=== PATIENT | male | born 1940 | race Caucasian/White ===

== ENCOUNTER 2019-04-19 11:39 | Emergency (ER) | payer MEDICARE, OTHER ==
--- NOTE | 2019-04-19 11:55 | EDM.PDOC ---
ED HPI GENERAL MEDICAL PROBLEM - General Chief Complaint: Neuro Symptoms/Deficits Stated Complaint: [facility] Time Seen by Provider: 04/19/19 11:39 Source of Information: Reports: Patient History Limitations: Reports: No Limitations - History of Present Illness INITIAL COMMENTS - FREE TEXT/NARRATIVE: 79-year-old male presents the ED per [facility] in his own home. Sometime during the night he is developed neurological deficits particularly in his left upper extremity left lower extremity and he believes his speech change some as well. His vision is a bit blurry this morning but he states it often is. He states there is no obvious visual deficit per se. He did have a severe left-sided headache which is subsequently eased up a good deal. He noted problems trying to eat this morning with his left hand which she is left-hand- dominant. Seborrheic short cake for breakfast and had difficulties coordinating his left upper extremity. Also been appreciated trouble walking due to left leg weakness. Previous history of CVA. Been diabetic for greater than 20 years. Sugars are well controlled usually 110-140. No recent hypoglycemic episodes. Paramedics got his blood sugar greater than 124. Denies any recent falls or closed head injuries. Onset: Today, Unknown/Unsure Onset Date: 04/19/19 Duration: Hour(s): Location: Reports: Upper Extremity, Left, Lower Extremity, Left, Other (Some difficulty with speech.) Quality: Reports: Other (Left arm and leg weakness. Perhaps mild left facial weakness) Severity: Mild Improves with: Reports: None Worsens with: Reports: None Context: Reports: Other (seem to awaken with symptoms around 0600 hrs. this morning something happened during the night.). Denies: Activity, Exercise, Lifting, Sick Contact, Trauma Associated Symptoms: Reports: Headaches, Malaise, Shortness of Breath ( Chronically on exertion). Denies: Confusion, Chest Pain, Cough, cough w sputum , Diaphoresis, Fever/Chills (Severe left-sided headache which is unusual for him this morning. It is subsequently eased up a good deal.), Loss of Appetite, Nausea/Vomiting, Rash, Seizure, Syncope Treatments PRESIDENT: Reports: Other (see below) (None.) - Related Data Allergies Allergy/AdvReac Type Severity Reaction Status Date / Time No Known Allergies Allergy Verified 04/19/19 12:49 Home Meds: Home Meds Aspirin [Halfprin] 162 mg PO DAILY 04/20/18 [History] B2/Vits A,C,E/Lut/Zeaxanth/Min [Icaps] 1 tab PO BID 04/20/18 [History] Cartilage/Collagen/Bor/Hyalur [Joint Health Tablet] 2 tab PO DAILY 04/20/18 [ History] Cyanocobalamin (Vitamin B-12) [Vitamin B-12] 1,000 mcg PO DAILY 04/20/18 [ History] Fenofibrate Nanocrystallized [Tricor] 145 mg PO DAILY 04/20/18 [History] Furosemide [Lasix] 40 mg PO DAILY 04/20/18 [History] Insulin Aspart [NovoLOG] 0 unit SQ TIDMEALS 04/20/18 [History] Insulin Glarg,Human.Rec.Analog [Lantus] 34 unit SUBCUT BEDTIME 04/20/18 [History ] Isosorbide Mononitrate [Imdur] 30 mg PO DAILY 04/20/18 [History] Levothyroxine 75 mcg PO ACBREAKFAST 04/20/18 [History] Metoprolol Succinate 50 mg PO DAILY 04/20/18 [History] Multivitamin [Multivitamins] 1 cap PO DAILY 04/20/18 [History] Nitroglycerin [Nitrostat] 0.4 mg SL ASDIRECTED PRN 04/20/18 [History] Ramipril [Altace] 10 mg PO BID 04/20/18 [History] Simvastatin [Zocor] 20 mg PO BEDTIME 04/20/18 [History] Tamsulosin HCl [Flomax] 0.4 mg PO BEDTIME 04/20/18 [History] metFORMIN HCl [Metformin HCl] 1,000 mg PO BID 04/20/18 [History] Ferrous Sulfate [Iron] 0.5 tab PO DAILY 04/19/19 [History] Past Medical History HEENT History: Reports: None Cardiovascular History: Reports: CAD, High Cholesterol, Hypertension, LA, Other (See Below) Other Cardiovascular History: Abdominal aortic aneurysm Respiratory History: Reports: Sleep Apnea Gastrointestinal History: Reports: None Genitourinary History: Reports: BPH, Other (See Below) Other Genitourinary History: stent to right kidney Musculoskeletal History: Reports: None Neurological History: Reports: None Other Neuro History: needing carotid surgery per patient Psychiatric History: Reports: None Endocrine/Metabolic History: Reports: Diabetes, Type II, Hypothyroidism Hematologic History: Reports: Anemia, Iron Deficiency, Other (See Below) Other Hematologic History: Microhematuria Immunologic History: Reports: None Oncologic (Cancer) History: Reports: Bladder, Non-Hodgkin's Lymphoma Other Oncologic History: Bladder neoplasm, bladder mass Dermatologic History: Reports: None - Infectious Disease History Infectious Disease History: Reports: None - Past Surgical History Head Surgeries/Procedures: Reports: None HEENT Surgical History: Reports: Tonsillectomy Cardiovascular Surgical History: Reports: Pacer, Other (See Below) Other Cardiovascular Surgeries/Procedures: Angiogram Respiratory Surgical History: Reports: None GI Surgical History: Reports: Appendectomy, Colonoscopy, Other (See Below) Other GI Surgeries/Procedures: Sigmoidoscopy Other Female Surgeries/Procedures: Cystoscopy with stent Male Surgical History: Reports: TURBT-Transurethral Resection of Bladder Tumor, Other (See Below) Endocrine Surgical History: Reports: None Neurological Surgical History: Reports: None Musculoskeletal Surgical History: Reports: None Oncologic Surgical History: Reports: None Dermatological Surgical History: Reports: None Social & Family History - Caffeine Use Caffeine Use: Reports: Coffee, Tea - Living Situation & Occupation Living situation: Reports: , with Spouse (In their own home in [facility]) Occupation: Retired ED ROS GENERAL - Review of Systems Review Of Systems: See Below Constitutional: Reports: Malaise, Weakness, Fatigue. Denies: Fever, Chills HEENT: Reports: Vision Change (Chronic vision changes. No improvement since cataract extractions done within the last 6 months.) Respiratory: Reports: Shortness of Breath ( Has known macular degeneration. Unclear if he has diabetic retinopathy.), Cough. Denies: Wheezing, Pleuritic Chest Pain, Sputum, Hemoptysis (Nonproductive cough.) Cardiovascular: Reports: Blood Pressure Problem, Dyspnea on Exertion, Lightheadedness. Denies: Chest Pain, Claudication, Edema, Orthopnea Endocrine: Reports: Fatigue (Chronically) GI/Abdominal: Reports: Constipation, Other : Reports: Frequency (Occasional GERD.), Other Musculoskeletal: Reports: Back Pain (Nocturia usually 3. Has known BPH.), Joint Pain (A sepsis neck and shoulders at times.) Skin: Reports: No Symptoms Neurological: Reports: Dizziness (Occasional dizziness and vertigo symptoms), Headache, Numbness (Severe left hemicranial headache this morning which is subsequently dissipated.), Paresthesia (Has peripheral neuropathy in both lower extremities from the knees down.), Tingling, Trouble Speaking (Worse today left leg weakness. He had some trouble speaking but he comes across normally and are) , Difficulty Walking, Weakness, Change in Speech, Gait Disturbance. Denies: Confusion, Pre-Existing Deficit ( From the knees down both lower extremities.), Seizure, Tremors ( discussion.) Psychiatric: Reports: No Symptoms Hematologic/Lymphatic: Reports: No Symptoms Immunologic: Reports: No Symptoms ED EXAM, NEURO - Physical Exam Exam: See Below Exam Limited By: No Limitations General Appearance: Alert, WD/WN, No Apparent Distress, Other (Appears to be having trouble with his vision.) Eye Exam: Bilateral Eye: Normal Inspection, PERRL (No gaze palsy.) Throat/Mouth: Normal Inspection, Normal Lips, Normal Oropharynx, Other Head Exam: Atraumatic (Uvula is dry and in the midline.), Normocephalic Neck: Normal Inspection, Supple, Non-Tender, Full Range of Motion. No: Carotid Bruit, Lymphadenopathy (L), Lymphadenopathy (R) Respiratory/Chest: Respiratory Distress, Decreased Breath Sounds (Mild tachypnea.), Rales ( Decreased air into the lower 25% lung carlson bilaterally. Bilateral rales appreciated in the lower 20% of lung carlson.) Cardiovascular: Regular Rate, Rhythm, No Edema, No Gallop, No Murmur, No Rub. No: Normal Peripheral Pulses GI/Abdominal: Normal Bowel Sounds, Soft, Non-Tender, No Abnormal Bruit, No Mass Neurological: Alert, Normal Mood/Affect, CN II-XII Intact, Normal Plantar Flexion, Normal Reflexes, Oriented x 3, Abnormal Finger to Nose (Left hand.), Other. No: Normal Gait, Babinski (No sustained clonus.) DTR: 0: Achilles (R), Achilles (L), 2+: Patella (R), Patella (L) Back Exam: Other (Very mild kyphosis thoracic spine.) Extremities: Normal Inspection, Normal Range of Motion, Non-Tender Psychiatric: Normal Affect, Normal Mood Skin Exam: Warm, Dry, Intact, Normal Color, Pallor (Mildly pallid.) EKG INTERPRETATION EKG Date: 04/19/19 Time: 12:20 Rhythm: NSR Rate (Beats/Min): 74 Xenia: LAD-Left Xenia Deviation (-45) P-Wave: Present (Borderline first-degree AV block) QRS: Other (Left bundle branch block pattern Q waves leads [address] segment elevation consider acute inferior wall myocardial infarction. There is also ST segment depression in V5 V6 one in aVL compatible with reciprocal changes.) ST-T: Elevated (Elevated leads 3 and aVF) QT: Normal EKG Interpretation Comments: Abnormal ECG Course - Vital Signs Last Recorded V/S: Last Vital Signs Temp 36.4 C 04/19/19 12:00 Pulse 77 04/19/19 12:00 Resp 20 04/19/19 12:00 BP 131/62 04/19/19 12:00 Pulse Ox 86 L 04/19/19 12:00 - Orders/Labs/Meds Orders: Active Orders 24 hr Category Date Time Status EKG Documentation Completion [RC] STAT Care 04/19/19 11:50 Active Influenza Vaccine Charge [RC] .DISCHARGE Care 04/19/19 12:26 Active Chest 1V Frontal [CR] Stat Exams 04/19/19 11:50 Taken URINALYSIS W/MICROSCOPIC [UA W/MICROSCOPIC] [URIN] Stat Lab 04/19/19 11:52 Ordered Furosemide [Lasix] Med 04/19/19 13:07 Once 60 mg IVPUSH NOW ONE Heparin Sodium/D5W [Heparin 25,000 Units in D5W 500 ML] Med 04/19/19 13:00 Active 25,000 units in 500 ml IV TITRATE Sodium Chloride 0.9% [Normal Saline] 1,000 ml Med 04/19/19 12:15 Active IV ASDIRECTED Medication Orders Sodium Chloride (Normal Saline) 1,000 mls @ 75 mls/hr IV ASDIRECTED COURT Last Admin: 04/19/19 12:15 Dose: 75 mls/hr Heparin Sodium/Dextrose (Heparin 25,000 Units In D5w 500 Ml) 25,000 units in 500 mls @ 20 mls/hr IV TITRATE COURT Labs: Laboratory Tests 04/19/19 04/19/19 04/19/19 Range/Units 11:50 11:50 11:50 WBC 10.73 H (4.23-9.07) K/mm3 RBC 3.21 L (4.63-6.08) M/mm3 Hgb 9.8 L (13.7-17.5) gm/dl Hct 31.0 L (40.1-51.0) % MCV 96.6 H (79.0-92.2) fl MCH 30.5 (25.7-32.2) pg MCHC 31.6 L (32.2-35.5) g/dl RDW Std Deviation 51.4 H (35.1-43.9) fL Plt Count 324 (163-337) K/mm3 MPV 9.5 (9.4-12.3) fl Neut % (Auto) 53.0 (34.0-67.9) % Lymph % (Auto) 37.2 (21.8-53.1) % Winston % (Auto) 8.2 (5.3-12.2) % Eos % (Auto) 1.2 (0.8-7.0) Baso % (Auto) 0.4 (0.1-1.2) % Neut # (Auto) 5.69 H (1.78-5.38) K/mm3 Lymph # (Auto) 3.99 H (1.32-3.57) K/mm3 Winston # (Auto) 0.88 H (0.30-0.82) K/mm3 Eos # (Auto) 0.13 (0.04-0.54) K/mm3 Baso # (Auto) 0.04 (0.01-0.08) K/mm3 Manual Slide Review Normal smear ESR (0-15) mm/hr PT 11.1 (9.7-12.0) SECONDS INR 1.02 APTT 23 (22-31) SECONDS Sodium 139 (136-145) mEq/L Potassium 4.1 (3.5-5.1) mEq/L Chloride 103 (98-107) mEq/L Carbon Dioxide 24 (21-32) mEq/L Anion Gap 16.1 H (5-15) BUN 23 H (7-18) mg/dL Creatinine 1.7 H (0.7-1.3) mg/dL Est Cr Clr Drug Dosing 31.65 mL/min Estimated GFR (MDRD) 39 (>60) mL/min BUN/Creatinine Ratio 13.5 L (14-18) Glucose 119 H (83-115) mg/dL Serum Osmolality 304 H (280-300) mosm/kg Lactic Acid (0.4-2.0) mmol/L Calcium 9.5 (8.5-10.1) mg/dL Magnesium 2.0 (1.8-2.4) mg/dl Total Bilirubin 0.3 (0.2-1.0) mg/dL AST 29 (15-37) U/L ALT 19 (16-63) U/L Alkaline Phosphatase 41 L (46-116) U/L CK-MB (CK-2) 2.2 (0-3.6) ng/ml Troponin I 3.224 H* (0.00-0.056) ng/mL C-Reactive Protein 0.4 (<1.0) mg/dL NT-Pro-B Natriuret Pep (0-450) pg/mL Total Protein 8.4 H (6.4-8.2) g/dl Albumin 3.8 (3.4-5.0) g/dl Globulin 4.6 gm/dL Albumin/Globulin Ratio 0.8 L (1-2) 04/19/19 04/19/19 04/19/19 Range/Units 11:50 11:50 12:00 WBC (4.23-9.07) K/mm3 RBC (4.63-6.08) M/mm3 Hgb (13.7-17.5) gm/dl Hct (40.1-51.0) % MCV (79.0-92.2) fl MCH (25.7-32.2) pg MCHC (32.2-35.5) g/dl RDW Std Deviation (35.1-43.9) fL Plt Count (163-337) K/mm3 MPV (9.4-12.3) fl Neut % (Auto) (34.0-67.9) % Lymph % (Auto) (21.8-53.1) % Winston % (Auto) (5.3-12.2) % Eos % (Auto) (0.8-7.0) Baso % (Auto) (0.1-1.2) % Neut # (Auto) (1.78-5.38) K/mm3 Lymph # (Auto) (1.32-3.57) K/mm3 Winston # (Auto) (0.30-0.82) K/mm3 Eos # (Auto) (0.04-0.54) K/mm3 Baso # (Auto) (0.01-0.08) K/mm3 Manual Slide Review ESR 55 H (0-15) mm/hr PT (9.7-12.0) SECONDS INR APTT (22-31) SECONDS Sodium (136-145) mEq/L Potassium (3.5-5.1) mEq/L Chloride (98-107) mEq/L Carbon Dioxide (21-32) mEq/L Anion Gap (5-15) BUN (7-18) mg/dL Creatinine (0.7-1.3) mg/dL Est Cr Clr Drug Dosing mL/min Estimated GFR (MDRD) (>60) mL/min BUN/Creatinine Ratio (14-18) Glucose (83-115) mg/dL Serum Osmolality (280-300) mosm/kg Lactic Acid 1.8 (0.4-2.0) mmol/L Calcium (8.5-10.1) mg/dL Magnesium (1.8-2.4) mg/dl Total Bilirubin (0.2-1.0) mg/dL AST (15-37) U/L ALT (16-63) U/L Alkaline Phosphatase (46-116) U/L CK-MB (CK-2) (0-3.6) ng/ml Troponin I (0.00-0.056) ng/mL C-Reactive Protein (<1.0) mg/dL NT-Pro-B Natriuret Pep 1849 H (0-450) pg/mL Total Protein (6.4-8.2) g/dl Albumin (3.4-5.0) g/dl Globulin gm/dL Albumin/Globulin Ratio (1-2) Meds: Medications Generic Name Dose Route Start Last Admin Trade Name Freq PRN Reason Stop Dose Admin Sodium Chloride 1,000 mls @ 75 mls/hr 04/19/19 12:15 04/19/19 12:15 Normal Saline IV 75 mls/hr ASDIRECTED COURT Administration Heparin Sodium/Dextrose 25,000 units in 500 mls @ 20 mls/hr 04/19/19 13:00 Heparin 25,000 Units In D5w [address] 1,000 UNITS/HR Discontinued Medications Generic Name Dose Route Start Last Admin Trade Name Freq PRN Reason Stop Dose Admin Aspirin 324 mg 04/19/19 13:00 Aspirin PO 04/19/19 13:01 ONETIME ONE Heparin Sodium (Porcine) 4,000 units 04/19/19 12:48 Heparin Sodium IVPUSH 04/19/19 12:49 .BOLUS ONE Influenza Virus Vaccine 180 mcg 04/19/19 12:45 04/19/19 12:45 Fluzone High-Dose 2019-20 Syringe IM 04/19/19 12:46 180 mcg .ONCE ONE Administration - Radiology Interpretation Free Text/Narrative:: 79-year-old male with chronic diabetes presents to the ED with neurological deficit that probably occurred during the night. Seems to have had deficit in his left upper extremity and left leg with difficulty walking stumbling a bit around the house and difficulty coordinating eating with his left hand about 0700 hrs. this morning. It up around 0600 hrs. this morning. Left hemicranial headache which is subsequent he dissipated. Clinically he has mild ataxia left upper extremity and grade 4 motor power and tone upper extremity and lower extremity. Plan CT head to be done. Stroke protocol. Unfortunately is out of the window for thrombolytic therapy ,in terms of his pain nearly 6 hours and symptom development. Routine labs and ECG to be done. - Re-Assessments/Exams Free Text/Narrative Re-Assessment/Exam: 04/19/19 12:37 Labs show a white count of 10.73 with an automated differential of 53% neutrophils. He is mildly anemic at 9.8 with hematocrit of 31.0. MCV is 96.6 mildly elevated. Platelet count 324,000. Normal smear. PT is 11.1 with an INR 1.02. PTT is 23. Sodium was 139 with a potassium of 4.1 chloride is 103 with a bicarbonate of 24 anion gap is 16.1 BUN is 23. Creatinine is 1.7 with a EGFR of 39 i.e. stage III chronic kidney disease. Glucose 119 osmolality pending. Calcium is 9.5. Magnesium 2.0 liver function normal. CK-MB fraction is 2.2 troponin is markedly elevated at 3.2-4. C-reactive protein is 0.4 BNP is 1849. Total protein is 8.4 with an albumin fraction of 3.8. CT of the brain reveals age-appropriate degenerative changes with small vessel ischemic changes in both basal ganglia. Mild diminished dimensions density is noted within the periventricular white matter no other abnormal parenchymal densities are identified no intracranial hemorrhage. No midline shift or mass effect. 04/19/19 12:[address] Siegel--firewall engineer at [facility] and he agrees with me that we have no idea when this patient may have had his infarct. It is troponin is already 3.2 suggests is been greater than 6- 12 hours. Therefore thrombolytics are felt to be relatively contraindicated we' ll proceed with heparinization. Since he had neurological symptoms of presentation which seemed to have resolved it is possible that he had an embolus in his heart that caused his current symptomatology. For likely have an MRI of his brain or MRA as well as an echocardiogram when he reaches . In the meantime he will be heparinized with 4000 unit bolus and 1000 units per hour. He will be transported to [facility] per ground ambulance. 04/19/19 13:11 chest x-ray done portably reveals marked cardiomegaly and diffuse severe vascular congestion or pulmonary edema. Given Lasix 60 mg IV. is received his aspirin 324 mg chewed and has been heparinized. He is to be taken to the ED at [facility]. Departure - Departure Time of Disposition: 13:14 Disposition: DC/Tfer to Acute Hospital 02 Condition: Poor Clinical Impression: Acute myocardial infarction due to right coronary artery occlusion, Acute left- sided muscle weakness, Stage 3 chronic kidney disease, Controlled type 2 diabetes mellitus with insulin therapy Congestive heart failure Qualifiers: Heart failure type: unspecified Heart failure chronicity: acute on chronic Qualified Code(s): I50.9 - Heart failure, unspecified - Discharge Information *PRESCRIPTION DRUG MONITORING PROGRAM REVIEWED*: Not Applicable *COPY OF PRESCRIPTION DRUG MONITORING REPORT IN PATIENT BALJIT: Not Applicable Referrals: August eRyes MD [Primary Care Provider] - Forms: ED Department Discharge Additional Instructions: Patient transferred to [facility] per his request. He is to see Dr. LACKEY at [facility] has since retired. He has been seen on multiple occasions at [facility] but has no current firewall engineer there. - My Orders Last 24 Hours: My Active Orders 04/19/19 11:50 EKG Documentation Completion [RC] STAT Chest 1V Frontal [CR] Stat 04/19/19 11:52 URINALYSIS W/MICROSCOPIC [UA W/MICROSCOPIC] [URIN] Stat 04/19/19 12:15 Sodium Chloride 0.9% [Normal Saline] 1,000 ml IV ASDIRECTED 04/19/19 12:26 Influenza Vaccine Charge [RC] .DISCHARGE 04/19/19 13:00 Heparin Sodium/D5W [Heparin 25,000 Units in D5W 500 ML] 25,000 units in 500 ml IV TITRATE 04/19/19 13:07 Furosemide [Lasix] 60 mg IVPUSH NOW ONE - Assessment/Plan Last 24 Hours: My Active Orders 04/19/19 11:50 EKG Documentation Completion [RC] STAT Chest 1V Frontal [CR] Stat 04/19/19 11:52 URINALYSIS W/MICROSCOPIC [UA W/MICROSCOPIC] [URIN] Stat 04/19/19 12:15 Sodium Chloride 0.9% [Normal Saline] 1,000 ml IV ASDIRECTED 04/19/19 12:26 Influenza Vaccine Charge [RC] .DISCHARGE 04/19/19 13:00 Heparin Sodium/D5W [Heparin 25,000 Units in D5W 500 ML] 25,000 units in 500 ml IV TITRATE 04/19/19 13:07 Furosemide [Lasix] 60 mg IVPUSH NOW ONE
[2019-04-19] MEDS ORDERED: Sodium Chloride 0.9% 1,000 ML IV SCH (12:15)
--- NOTE | 2019-04-19 12:27 | CT ---
Head CT Technique: Multiple axial sections through the brain were obtained. Intravenous contrast was not utilized. Comparison: No prior intracranial imaging is available. Findings: Ventricles along with basal cisterns and sulci over the convexities are moderately prominent. Minimal diminished density is noted within the periventricular white matter compatible with small vessel ischemic demyelination change. No other abnormal parenchymal densities are seen. No evidence of intracranial hemorrhage. No midline shift or mass effect is seen. Bone window settings were reviewed which show no acute calvarial abnormality. Mastoid sinuses are clear. Visualized paranasal sinuses show nothing acute. Impression: 1. Mild senescent change. 2. Nothing acute is appreciated on noncontrast head CT exam. Diagnostic code #2 This report was dictated in [place] Standard Time
[2019-04-19] MEDS ORDERED: Heparin Sodium 5,000 Units/ML Vial IVPUSH ONE (12:48)
[2019-04-19] MEDS ORDERED: Aspirin 81 MG Tab.Chew PO ONE (13:00)
[2019-04-19] MEDS ORDERED: Heparin Sodium/D5W 25,000 UNITS/500 ML BAG IV SCH (13:00)
[2019-04-19] MEDS ORDERED: Furosemide 40 MG/4 ML VIAL IVPUSH ONE (13:07)
--- NOTE | 2019-04-20 09:14 | CR ---
Chest: Portable view of the chest was obtained. Comparison: No prior chest x-rays available. Heart is enlarged. Pulmonary vessels are mildly congested. Pacemaker is noted. Bony structures are grossly intact. Impression: 1. Findings felt compatible with mild CHF. Diagnostic code #3 This report was dictated in [place] Standard Time
== END 2019-04-19 13:45 ==
LOC: SUPCPDRO 11:39 → JD.ED 11:39
DX: I21.9 Acute myocardial infarction, unspecified (principal); E11.22 Type 2 diabetes mellitus with diabetic chronic kidney disease; I13.0 Hypertensive heart and chronic kidney disease with heart failure and stage 1 through stage 4 chronic kidney disease, or unspecified chronic kidney disease; N18.3 Chronic kidney disease, stage 3 (moderate); I50.9 Heart failure, unspecified; I25.10 Atherosclerotic heart disease of native coronary artery without angina pectoris; E78.00 Pure hypercholesterolemia, unspecified; E03.9 Hypothyroidism, unspecified; N40.0 Benign prostatic hyperplasia without lower urinary tract symptoms; Z23 Encounter for immunization; Z86.73 Personal history of transient ischemic attack (TIA), and cerebral infarction without residual deficits; Z79.82 Long term (current) use of aspirin; Z79.899 Other long term (current) drug therapy; Z79.4 Long term (current) use of insulin; Z79.890 Hormone replacement therapy
CPT/HCPCS: 36415; 70450; 71045; 80053; 81001; 82553; 82962; 83605; 83735; 83880; 83930; 84484; 85025; 85610; 85652; 85730; 86140; 90662; 93005; 96361; 96365; 96375; 99285; A9270; G0008; J1644; J1940; J7030; 93010

== ENCOUNTER 2019-10-04 07:00 | Day surgery (SDC) | payer MEDICARE, OTHER ==
[~2019-10-04 07:00] MED LIST: Lactated Ringers 1,000 ML IV SCH; Lidocaine 1%/Sod Bicarbonate in NS 8.4% 1 ML Syringe IDERM PRN; Sodium Chloride 0.9% 10 ML Syringe FLUSH PRN
--- NOTE | 2019-10-04 07:59 | PCM.PREANE ---
Preanesthetic Assessment - Procedure Proposed Procedure: Bone Marrow Biopsy Excision of Skin Lesion - Anesthesia/Transfusion/Family Hx Anesthesia History: No Prior Anesthesia Family History of Anesthesia Reaction: No Transfusion History: No Prior Transfusion(s) Intubation History: Unknown - Review of Systems General: No Symptoms Pulmonary: No Symptoms Cardiovascular: Edema (Edema to lower legs/feet. Unchanged per patient. ), Other (VA with 2 stents placed in April of 2019. No chest pain since this episode. No nitroglycerine use since stent placement. ) Gastrointestinal: No Symptoms Neurological: Other (TIA in April with VA. Symptoms resolved. Carotid endarterectomy in May by Dr. Escobar. No further TIA symptoms. ) Other: Reports: Easy Bleeding, Easy Bruising (Antigoagulated with Plavix. Continued through per procedure Dr. Reyna aware, requested per tumbler machine operator. ), Diabetes (Blood glucose 98mg/dl this morning. ) - Physical Assessment NPO Status Date: 10/03/19 NPO Status Time: 07:58 Weight: 84 kg ASA Class: 3 Mental Status: Alert & Oriented x3 Airway Class: Mallampati = 2 Dentition: Reports: Dentures, Partial Thyro-Mental Finger Breadths: 3 Mouth Opening Finger Breadths: 3 ROM/Head Extension: Full Lungs: Clear to Auscultation, Normal Respiratory Effort, Decreased Breath Sounds Cardiovascular: Regular Rate, Regular Rhythm, Other (Paced) - Lab Values: Laboratory Last Values SARS Virus RNA (PCR) Negative (NEGATIVE) 10/02/19 11:43 - Imaging/EKG Impressions: A paced Left BBB rate 67 - Allergies Allergies/Adverse Reactions: Allergies Allergy/AdvReac Type Severity Reaction Status Date / Time No Known Allergies Allergy Verified 04/19/19 12:49 - Anesthesia Plan Beta Jerrell: Metoprolol Med Last Dose Date: 10/04/19 Med Last Dose Time: 06:00 - Acknowledgements Anesthesia Type Planned: MAC Pt an Appropriate Candidate for the Planned Anesthesia: Yes Alternatives and Risks of Anesthesia Discussed w Pt/Guardian: Yes Pt/Guardian Understands and Agrees with Anesthesia Plan: Yes Additional Comments: Sesar is aware he is at an increased risk with his recent VA in April. He has required several blood transfusions for anemia and needs this bone marrow to help with a diagnosis. He is agreeable to the risk and wishes to proceed. Dr. Reyna agrees and wishes to proceed. PreAnesthesia Questionnaire HEENT History: Reports: Macular Degeneration Other HEENT History: wears reading glasses. Cardiovascular History: Reports: CAD, Heart Failure, High Cholesterol, Hypertension, VA, Stents, Other (See Below) Other Cardiovascular History: Abdominal aortic aneurysm, pulmonary hypertension Respiratory History: Reports: Sleep Apnea Other Respiratory History: wears C-PAP at noct. 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: Reports: None Musculoskeletal History: Reports: None Neurological History: Reports: CVA, TIA Other Neuro History: needing carotid surgery per patient Psychiatric History: Reports: None Endocrine/Metabolic History: Reports: Diabetes, Type II, Hypothyroidism, Obesity /BMI 30+ Hematologic History: Reports: Anemia, Blood Transfusion(s), Iron Deficiency, Other (See Below) Other Hematologic History: Microhematuria Immunologic History: Reports: None Oncologic (Cancer) History: Reports: Bladder, Non-Hodgkin's Lymphoma Other Oncologic History: Bladder neoplasm, bladder mass Dermatologic History: Reports: None - Infectious Disease History Infectious Disease History: Reports: None - Past Surgical History Head Surgeries/Procedures: Reports: None HEENT Surgical History: Reports: Cataract Surgery, Tonsillectomy, Other (See Below) Other HEENT Surgeries/Procedures: eye surgery Cardiovascular Surgical History: Reports: Carotid Endarterectomy, Pacer, Other ( See Below) Other Cardiovascular Surgeries/Procedures: Angiogram Respiratory Surgical History: Reports: None GI Surgical History: Reports: Appendectomy, Colonoscopy, EGD, Other (See Below) Other GI Surgeries/Procedures: Sigmoidoscopy Other Female Surgeries/Procedures: Cystoscopy with stent Male Surgical History: Reports: TURBT-Transurethral Resection of Bladder Tumor, Other (See Below) Endocrine Surgical History: Reports: None Neurological Surgical History: Reports: None Musculoskeletal Surgical History: Reports: None Oncologic Surgical History: Reports: None Dermatological Surgical History: Reports: None - SUBSTANCE USE Smoking Status *Q: Former Smoker Recreational Drug Use History: No - HOME MEDS Home Medications: Home Meds Aspirin [Halfprin] 81 mg PO DAILY 04/20/18 [History] Furosemide [Lasix] 40 mg PO DAILY 04/20/18 [History] Insulin Glarg,Human.Rec.Analog [Lantus] 10 unit SUBCUT BEDTIME 04/20/18 [History ] Levothyroxine 75 mcg PO QAM 04/20/18 [History] Metoprolol Succinate 50 mg PO DAILY 04/20/18 [History] Multivitamin [Multivitamins] 1 cap PO DAILY 04/20/18 [History] Ramipril [Altace] 10 mg PO BID 04/20/18 [History] Tamsulosin HCl [Flomax] 0.4 mg PO BEDTIME 04/20/18 [History] metFORMIN HCl [Metformin HCl] 1,000 mg PO BID 04/20/18 [History] Ferrous Sulfate [Iron] 1 tab PO BID 04/19/19 [History] Clopidogrel [Plavix] 75 mg PO DAILY 05/29/19 [History] Pantoprazole Sodium [Protonix] 40 mg PO DAILY 08/11/19 [History] amLODIPine [Norvasc] 5 mg PO DAILY 08/11/19 [History] - CURRENT (IN HOUSE) MEDS Current Meds: Current Medications Lactated Ringer's (Ringers, Lactated) 1,000 mls @ 125 mls/hr IV ASDIRECTED COURT Lidocaine/Sodium Bicarbonate (Buffered Lidocaine 1% In Ns 8.4%) 0.25 ml IDERM ONETIME PRN PRN Reason: Prior to IV Start Sodium Chloride (Saline Flush) 10 ml FLUSH ASDIRECTED PRN PRN Reason: Keep Vein Open
[2019-10-04] MEDS ORDERED: Lidocaine 1% 50 ML MDV ONE (08:04)
[2019-10-04] MEDS ORDERED: Bacitracin Oint 15 GM Tube ONE (08:09)
[2019-10-04] MEDS ORDERED: Propofol 200 MG/20 ML SDV ONE ×2 (08:20→10:29)
[2019-10-04] MEDS ORDERED: Lidocaine 1% 4 ML ONE (08:20)
[2019-10-04] MEDS ORDERED: fentaNYL 100 MCG/2 ML SDV ONE (08:21)
[2019-10-04] MEDS ORDERED: Lidocaine 1% with EPINEPHrine 1:100,000 20 ML MDV ONE (08:45)
[2019-10-04] MEDS ORDERED: Heparin Sodium 5,000 Units/ML Vial ONE (08:51)
[2019-10-04] MEDS ORDERED: ePHEDrine Sulfate/0.9% NaCl/Pf 25 MG/5 ML SYRINGE IV ONE (08:56)
--- NOTE | 2019-10-04 09:31 | PCM48HPAN ---
Post Anesthesia Note - EVALUATION WITHIN 48HRS OF ANESTHETIC Vital Signs in Normal Range: Yes Patient Participated in Evaluation: Yes Respiratory Function Stable: Yes Airway Patent: Yes Cardiovascular Function Stable: Yes Hydration Status Stable: Yes Pain Control Satisfactory: Yes Nausea and Vomiting Control Satisfactory: Yes Mental Status Recovered: Yes Vital Signs: Last Vital Signs Temp 35.7 C L 10/04/19 07:05 Pulse 80 10/04/19 07:05 Resp 16 10/04/19 07:05 BP 143/68 H 10/04/19 07:05 Pulse Ox 94 L 10/04/19 07:05 0927 145/58 72 20 97% RA 98.4F
--- NOTE | 2019-10-04 09:43 | PCM.PRNOTE ---
- Free Text/Narrative Note: Date of Surgery/Procedure: 10/04/19 Operative Procedure(s): 1. Excision of left upper back skin lesion. 2. Bone marrow biopsy Pre Op Diagnosis: pruritic skin lesion on left upper back of unkown malignant potential, anemia Post-Op Diagnosis: same Anesthesia Technique: Local, MAC Home Health Nurse: Ml Coleman CRNA Primary Surgeon: Genet Romero Rejoiner: Yung oSliz Reason Rejoiner Was Necessary: Skilled addictions counselor assistant needed for proctoring Findings: 5mm pruritic nodule on left upper back Pathology: 1. Left upper back skin lesion 2. Bone marrow aspirate Fluid Replacement, Intraop: 500 Output, Urine Amount: 0 EBL in mLs: 30 Indications: the patient is a 79 y/o male who presented to my office for a bone marrow biopsy. He has anemia requiring multiple blood transfusions. He also has a suspicious appearing pruritic skin lesion on the left upper back. He was consented for removal of the skin lesion and a bone marrow biopsy. Discussed risks of infection and bleeding. His written consent was obtained. Description: The patient was taken back to the operating room and placed in left lateral decubitus position. MAC anesthesia was induced. A surgical timeout was performed. The left upper back lesion and the left posterior hip were then prepped and draped in standard surgical fashion. The skin was anesthetized with 1% lidocaine with epinephrine in both locations. The skin lesion measured 5mm and was then marked with 3-5mm margins and excised with an ellipse of normal skin. The skin excised measured 1.5cm x 4.5cm. It was closed in 2 layers using underlying 3-0 vicryl and overlying 3-0 nylon sutures. The left hip posterior superior iliac spine was then incised with a 1cm incision. The bone marrow needle was then inserted and 25cc of aspirate was obtained. A separate core biopsy of was then obtained through the incision. The skin was re-approximated using 3-0 vicryl suture. Bacitracin and a dry dressing was applied to both areas. The patietn tolerated the procedure well and was awakened from anesthesia without complication. He was transported to PACU in stable condition. Complications: none apparent Genet Romero MD General surgery
--- NOTE | 2019-10-04 09:43 | PCM.OPNOTE ---
- General Post-Op/Procedure Note Date of Surgery/Procedure: 10/04/19 Operative Procedure(s): 1. Excision of left upper back skin lesion. 2. Bone marrow biopsy Findings: 5mm pruritic nodule on left upper back Pre Op Diagnosis: pruritic skin lesion on left upper back of unkown malignant potential, anemia Post-Op Diagnosis: same Anesthesia Technique: Local, MAC Primary Surgeon: Genet Romero Corporate Financial Analyst: Yung Soliz Reason Corporate Financial Analyst Was Necessary: Skilled assignment desk assistant needed for proctoring Pathology: 1. Left upper back skin lesion 2. Bone marrow aspirate Fluid Replacement, Intraop: 500 Output, Urine Amount: 0 EBL in mLs: 30 Complications: none apparent Condition: Good
== END 2019-10-04 11:54 | disposition home or self-care (01) ==
LOC: JD.SDS 07:00
PROVIDERS: ATTEND Surgery
DX: D18.01 Hemangioma of skin and subcutaneous tissue (principal); D64.9 Anemia, unspecified; N40.0 Benign prostatic hyperplasia without lower urinary tract symptoms; I11.0 Hypertensive heart disease with heart failure; I50.9 Heart failure, unspecified; C85.90 Non-Hodgkin lymphoma, unspecified, unspecified site; E66.9 Obesity, unspecified; E11.9 Type 2 diabetes mellitus without complications; E78.00 Pure hypercholesterolemia, unspecified; E78.5 Hyperlipidemia, unspecified; Z20.828 Contact with and (suspected) exposure to other viral communicable diseases; Z79.84 Long term (current) use of oral hypoglycemic drugs; Z87.891 Personal history of nicotine dependence; Z79.899 Other long term (current) drug therapy; Z79.890 Hormone replacement therapy; Z79.82 Long term (current) use of aspirin; Z68.34 Body mass index [BMI] 34.0-34.9, adult
CPT/HCPCS: 11401; 12032; 36415; 38222; 85025; 85045; A9270; J0171; J1642; J1644; J2001; J2704; J3010; J7120; U0002; 01112; 88305; 88311; 88313

== ENCOUNTER 2020-08-14 11:02 | Emergency (ER) | payer MEDICARE, OTHER ==
[2020-08-14] MEDS ORDERED: Sodium Chloride 0.9% 10 ML Syringe FLUSH PRN (11:55)
[2020-08-14] MEDS ORDERED: Ondansetron 4 MG/2 ML SDV IVPUSH ONE (11:55)
[2020-08-14] MEDS ORDERED: Sodium Chloride 0.9% 1,000 ML IV STA (11:55)
--- NOTE | 2020-08-14 12:26 | EDM.PDOC ---
ED HPI GENERAL MEDICAL PROBLEM - General Chief Complaint: General Stated Complaint: KIDNEY FAILURE/SENT BY [facility] Time Seen by Provider: 08/14/20 11:06 Source of Information: Reports: Patient, Provider History Limitations: Reports: No Limitations - History of Present Illness INITIAL COMMENTS - FREE TEXT/NARRATIVE: The patient presents from Dr Reyes's office for acute on chronic renal failure. The patient says for about 2 weeks he has been having nausea, vomiting, and diarrhea. Now he has generalized weakness. He also says he has some acid reflux, decreased appetite and sore throat. He has a history of CHF, CAD, carotid artery blockage, strokes, pulmonary HTN, pacemaker, anemia, diabetes, kidney disease, and bladder cancer. He had chemo therapy about 4 wee ks ago. He went to see Dr Reyes today and the patient's creatinine was elevated at 10.2. His BUN was 174. He also checked him for COVID which was negative. Onset: Gradual Duration: Week(s): (2) Location: Reports: Chest, Other (throat) Quality: Reports: Burning Severity: Mild Improves with: Reports: None Worsens with: Reports: None Associated Symptoms: Reports: Chest Pain, Nausea/Vomiting. Denies: Cough, Fever/Chills, Headaches, Shortness of Breath - Related Data Allergies Allergy/AdvReac Type Severity Reaction Status Date / Time No Known Allergies Allergy Verified 08/14/20 11:11 Home Meds: Home Meds Insulin Glarg,Human.Rec.Analog [Lantus] 10 unit SUBCUT BEDTIME 04/20/18 [History] Levothyroxine 100 mcg PO QAM 04/20/18 [History] Multivitamin [Multivitamins] 1 cap PO DAILY 04/20/18 [History] Ramipril [Altace] 10 mg PO BID 04/20/18 [History] Tamsulosin HCl [Flomax] 0.4 mg PO BEDTIME 04/20/18 [History] amLODIPine [Norvasc] 5 mg PO DAILY 08/11/19 [History] Cyanocobalamin (Vitamin B-12) [B-12] 1,000 mcg PO DAILY 08/14/20 [History] Ferrous Sulfate [Slow Fe] 200 mg PO BID 08/14/20 [History] Isosorbide Mononitrate [Imdur] 30 mg PO DAILY 08/14/20 [History] Metoprolol Succinate [Toprol XL 50mg] 50 mg PO DAILY 08/14/20 [History] Saw Dennis Fruit [Saw Dennis] 450 mg PO DAILY 08/14/20 [History] Torsemide 40 mg PO BID 08/14/20 [History] atorvaSTATin [Lipitor] 40 mg PO DAILY 08/14/20 [History] metOLazone [Metolazone] 2.5 mg PO ASDIRECTED 08/14/20 [History] Past Medical History HEENT History: Reports: Macular Degeneration Other HEENT History: wears reading glasses. 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: Reports: None Musculoskeletal History: Reports: Arthritis, Neck Pain, Chronic Neurological History: Reports: CVA, TIA Other Neuro History: needing carotid surgery per patient Psychiatric History: Reports: None Endocrine/Metabolic History: Reports: Diabetes, Type II, Hypothyroidism, Obesity/BMI 30+ Hematologic History: Reports: Anemia, Blood Transfusion(s), Iron Deficiency, Other (See Below) Other Hematologic History: Microhematuria Immunologic History: Reports: None Oncologic (Cancer) History: Reports: Bladder, Non-Hodgkin's Lymphoma Other Oncologic History: Bladder neoplasm, bladder mass Dermatologic History: Reports: None - Infectious Disease History Infectious Disease History: Reports: None - Past Surgical History HEENT Surgical History: Reports: Cataract Surgery, Tonsillectomy, Other (See Below) Other HEENT Surgeries/Procedures: eye surgery Cardiovascular Surgical History: Reports: Carotid Endarterectomy, Pacer, Other (See Below) Other Cardiovascular Surgeries/Procedures: Angiogram GI Surgical History: Reports: Appendectomy, Colonoscopy, EGD, Other (See Below) Other GI Surgeries/Procedures: Sigmoidoscopy Male Surgical History: Reports: TURBT-Transurethral Resection of Bladder Tumor, Other (See Below) Social & Family History - Family History Family Medical History: No Pertinent Family History - Tobacco Use Tobacco Use Status *Q: Former Tobacco User Used Tobacco, but Quit: Yes Month/Year Tobacco Last Used: 05/1993 - Caffeine Use Caffeine Use: Reports: Coffee - Recreational Drug Use Recreational Drug Use: No - Living Situation & Occupation Living situation: Reports: , with Spouse (In their own home in [facility]) Occupation: Retired ED ROS GENERAL - Review of Systems Review Of Systems: See Below Constitutional: Reports: Weakness, Fatigue. Denies: Fever, Chills HEENT: Reports: No Symptoms Respiratory: Reports: No Symptoms Cardiovascular: Reports: Chest Pain Endocrine: Reports: Fatigue GI/Abdominal: Reports: Nausea, Vomiting. Denies: Abdominal Pain : Reports: No Symptoms Neurological: Reports: No Symptoms ED EXAM, GENERAL - Physical Exam Exam: See Below Exam Limited By: No Limitations General Appearance: Alert, No Apparent Distress Ears: Normal External Exam Nose: Normal Inspection Head: Atraumatic, Normocephalic Neck: Normal Inspection Respiratory/Chest: No Respiratory Distress, Lungs Clear, Normal Breath Sounds Cardiovascular: Regular Rate, Rhythm, No Edema, No Murmur GI/Abdominal: Soft, Non-Tender, No Organomegaly, No Mass Back Exam: Normal Inspection Extremities: Normal Inspection Neurological: Alert, Oriented, No Motor/Sensory Deficits Course - Vital Signs Last Recorded V/S: Last Vital Signs Temp 97.3 F 08/14/20 11:11 Pulse 104 H 08/14/20 11:11 Resp 14 08/14/20 11:11 BP 135/57 L 08/14/20 11:11 Pulse Ox 100 08/14/20 11:11 - Orders/Labs/Meds Orders: Active Orders 24 hr Category Date Time Status EKG Documentation Completion [RC] ASDIRECTED Care 08/14/20 12:17 Active Peripheral IV Care [RC] . DIRECTED Care 08/14/20 11:55 Active RT Aerosol Therapy [RC] ASDIRECTED Care 08/14/20 12:50 Ordered Sodium Bicarbonate [Sodium Bicarbonate 8.4%] 150 meq Med 08/14/20 12:57 Ordered Dextrose 5% in Water 1,000 ml IV ONETIME Sodium Chloride 0.9% [Saline Flush] Med 08/14/20 11:55 Active 10 ml FLUSH ASDIRECTED PRN ED Antiemetic Medication Reflex [OM.PC] Stat Oth 08/14/20 11:55 Ordered Peripheral IV Insertion Adult [OM.PC] Stat Oth 08/14/20 11:55 Ordered EKG 12 Lead [EK] Stat Ther 08/14/20 12:16 Ordered Medication Orders Sodium Bicarbonate 150 meq/ (Dextrose/Water) 1,150 mls @ 100 mls/hr IV ONETIME ONE Stop: 08/15/20 00:26 Sodium Chloride (Sodium Chloride 0.9% 10 Ml Syringe) 10 ml FLUSH ASDIRECTED PRN PRN Reason: Keep Vein Open Last Admin: 08/14/20 12:07 Dose: 10 ml Documented by: OANH Labs: Laboratory Tests 08/14/20 Range/Units 11:30 Sodium 134 L (136-145) mEq/L Potassium 5.8 H D (3.5-5.1) mEq/L Chloride 97 L (98-107) mEq/L Carbon Dioxide 19 L (21-32) mEq/L Anion Gap 23.8 H (5-15) BUN 181 H D (7-18) mg/dL Creatinine 10.4 H D (0.7-1.3) mg/dL Est Cr Clr Drug Dosing 5.09 mL/min Estimated GFR (MDRD) 5 (>60) mL/min BUN/Creatinine Ratio 17.4 (14-18) Glucose 130 H (83-115) mg/dL Calcium 9.2 (8.5-10.1) mg/dL Total Bilirubin 0.4 (0.2-1.0) mg/dL AST 13 L (15-37) U/L ALT 23 (16-63) U/L Alkaline Phosphatase 234 H (46-116) U/L Total Protein 8.1 (6.4-8.2) g/dl Albumin 2.9 L (3.4-5.0) g/dl Globulin 5.2 gm/dL Albumin/Globulin Ratio 0.6 L (1-2) Meds: Medications Generic Name Dose Route Start Last Admin Trade Name Freq PRN Reason Stop Dose Admin Sodium Bicarbonate 150 meq/ 1,150 mls @ 100 mls/hr 08/14/20 12:57 Dextrose/Water IV 08/15/20 00:26 ONETIME ONE Sodium Chloride 10 ml 08/14/20 11:55 08/14/20 12:07 Sodium Chloride 0.9% 10 Ml Syringe FLUSH 10 ml ASDIRECTED PRN Administration Keep Vein Open Discontinued Medications Generic Name Dose Route Start Last Admin Trade Name Sweta PRN Reason Stop Dose Admin Albuterol 2.5 mg 08/14/20 12:50 Albuterol 0.083% 2.5 Mg/3 Ml Neb Soln NEB 08/14/20 12:51 ONETIME ONE Calcium Gluconate 1 gm 08/14/20 12:50 Calcium Gluconate 10% 1 Gm/10 Ml Sdv IVPUSH 08/14/20 12:51 ONETIME ONE Calcium Gluconate 1 gm 08/14/20 12:53 Calcium Gluconate 10% 1 Gm/10 Ml Sdv IVPUSH 08/14/20 12:54 ONETIME ONE Dextrose/Water 50 ml 08/14/20 12:50 50% Dextrose In Water 50 Ml Syringe IVPUSH 08/14/20 12:51 ONETIME ONE Sodium Chloride 1,000 mls @ 1,000 mls/hr 08/14/20 11:55 08/14/20 12:02 Normal Saline IV 08/14/20 12:54 1,000 mls/hr .BOLUS STA Administration Dextrose/Water 1,000 mls @ 100 mls/hr 08/14/20 13:00 Dextrose 5% In Water IV ASDIRECTED [facility] Insulin Human Regular 10 unit 08/14/20 12:51 Insulin Regular, Human 100 Units/Ml 3 Ml Vial SUBCUT 08/14/20 12:52 ONETIME ONE Ondansetron HCl 4 mg 08/14/20 11:55 08/14/20 12:02 Ondansetron 4 Mg/2 Ml Sdv IVPUSH 08/14/20 11:56 4 mg ONETIME ONE Administration Sodium Bicarbonate 50 meq 08/14/20 12:56 Sodium Bicarbonate 8.4% 50 Meq/50 Ml Syringe IVPUSH 08/14/20 12:57 ONETIME ONE Sodium Polystyrene Sulfonate 45 gm 08/14/20 12:49 Sodium Polystyrene Sulfonate 15 Gm/60 Ml Susp 60 Ml Bot PO 08/14/20 12:50 NOW ONE - Re-Assessments/Exams Free Text/Narrative Re-Assessment/Exam: 08/14/20 12:29 I ordered an IV NS 1L bolus and zofran 4mg IV. His WBC was normal at 8. His Hgb was low at 8.8. His platelets were normal. His BUN was elevated at 174. His creatinine was elevated at 10.25. His Na was low at 133. His potassium was elevated at 5.8. His CO2 is low at 16. His calcium is low at 8.4. His alk phos is elevated at 245. He is COVID negative. His troponin is elevated at 0.166. I have ordered an EKG. 08/14/20 12:59 The EKG shows a NSR LBBB with no acute changes. I talked with my hospitalist and he felt the patient was to sick to stay here. I called [facility] in [place] and talked with Dr Churchill the hospitalist and Dr Cameron the dining room coordinator. They both accepted him. They did want me to treat his hyperkalemia. I have ordered kaexylate 45mg PO, sodium bicarb 50meq IV, calcium gluconate 2 grams IV, albuterol neb, D50 IV, insulin R [address] Cameron also wanted him to have some sodium bicarb 3 amps in D50 at 100ml/hr. He will be going by ambulance. Departure - Departure Time of Disposition: 13:45 Disposition: DC/Tfer to [facility] Hospital 02 Condition: Serious Clinical Impression: Dehydration, Hyperkalemia, Elevated troponin Acute renal failure Qualifiers: Acute renal failure type: unspecified Qualified Code(s): N17.9 - Acute kidney failure, unspecified Nausea and vomiting Qualifiers: Vomiting type: unspecified Vomiting Intractability: non-intractable Qualified Code(s): R11.2 - Nausea with vomiting, unspecified - Discharge Information Referrals: August Reyes MD [Primary Care Provider] - Forms: ED Department Discharge Sepsis Event Note (ED) - Evaluation Sepsis Screening Result: No Definite Risk - Focused Exam Vital Signs: Vital Signs Temp Pulse Resp BP Pulse Ox 08/14/20 11:11 97.3 F 104 H 14 135/57 L 100 - My Orders Last 24 Hours: My Active Orders 08/14/20 11:55 Peripheral IV Care [RC] . DIRECTED Sodium Chloride 0.9% [Saline Flush] 10 ml FLUSH ASDIRECTED PRN ED Antiemetic Medication Reflex [OM.PC] Stat Peripheral IV Insertion Adult [OM.PC] Stat 08/14/20 12:16 EKG 12 Lead [EK] Stat 08/14/20 12:17 EKG Documentation Completion [RC] ASDIRECTED 08/14/20 12:50 RT Aerosol Therapy [RC] ASDIRECTED 08/14/20 12:57 Sodium Bicarbonate [Sodium Bicarbonate 8.4%] 150 meq Dextrose 5% in Water 1,000 ml IV ONETIME - Assessment/Plan Last 24 Hours: My Active Orders 08/14/20 11:55 Peripheral IV Care [RC] . DIRECTED Sodium Chloride 0.9% [Saline Flush] 10 ml FLUSH ASDIRECTED PRN ED Antiemetic Medication Reflex [OM.PC] Stat Peripheral IV Insertion Adult [OM.PC] Stat 08/14/20 12:16 EKG 12 Lead [EK] Stat 08/14/20 12:17 EKG Documentation Completion [RC] ASDIRECTED 08/14/20 12:50 RT Aerosol Therapy [RC] ASDIRECTED 08/14/20 12:57 Sodium Bicarbonate [Sodium Bicarbonate 8.4%] 150 meq Dextrose 5% in Water 1,000 ml IV ONETIME
[2020-08-14] MEDS ORDERED: Sodium Polystyrene Sulfonate 15 GM/60 ML Susp 60 ML Bot PO ONE (12:49)
[2020-08-14] MEDS ORDERED: 50% Dextrose in Water 50 ML Syringe IVPUSH ONE (12:50)
[2020-08-14] MEDS ORDERED: Albuterol 0.083% 2.5 MG/3 ML Neb Soln NEB ONE (12:50)
[2020-08-14] MEDS ORDERED: Calcium Gluconate 10% 1 GM/10 ML SDV IVPUSH ONE ×2 (12:50→12:53)
[2020-08-14] MEDS ORDERED: Insulin Regular, Human 100 Units/ML 3 ML Vial SUBCUT ONE (12:51)
[2020-08-14] MEDS ORDERED: Sodium Bicarbonate 8.4% 50 MEQ/50 ML Syringe IVPUSH ONE (12:56)
[2020-08-14] MEDS ORDERED: Sodium Bicarbonate 150 MEQ in Dextrose 5% in Water 1,000 ML IV ONE ×2 (12:57)
[2020-08-14] MEDS ORDERED: Dextrose 5% in Water 1,000 ML IV SCH (13:00)
== END 2020-08-14 14:15 ==
LOC: JD.ED 11:02
DX: N17.9 Acute kidney failure, unspecified (principal); E87.5 Hyperkalemia; E86.0 Dehydration; R11.2 Nausea with vomiting, unspecified; R79.89 Other specified abnormal findings of blood chemistry; I25.10 Atherosclerotic heart disease of native coronary artery without angina pectoris; I13.0 Hypertensive heart and chronic kidney disease with heart failure and stage 1 through stage 4 chronic kidney disease, or unspecified chronic kidney disease; I50.9 Heart failure, unspecified; N18.30 Chronic kidney disease, stage 3 unspecified; E11.22 Type 2 diabetes mellitus with diabetic chronic kidney disease; E78.00 Pure hypercholesterolemia, unspecified; N40.0 Benign prostatic hyperplasia without lower urinary tract symptoms; E03.9 Hypothyroidism, unspecified; E66.9 Obesity, unspecified; I25.2 Old myocardial infarction; Z95.5 Presence of coronary angioplasty implant and graft; Z86.73 Personal history of transient ischemic attack (TIA), and cerebral infarction without residual deficits; Z79.899 Other long term (current) drug therapy; Z79.4 Long term (current) use of insulin; Z68.29 Body mass index [BMI] 29.0-29.9, adult; Z87.891 Personal history of nicotine dependence
CPT/HCPCS: 36415; 80053; 93005; 94640; 96365; 96375; 99285; A9270; J0610; J1815; J2405; J7030; J7060; 99284

== ENCOUNTER 2020-11-25 12:44 | Emergency (ER) | payer MEDICARE, OTHER ==
[2020-11-25] MEDS ORDERED: HEPARIN SODIUM IV ONE ×2 (13:00)
--- NOTE | 2020-11-25 13:01 | EDM.PDOC ---
ED HPI GENERAL MEDICAL PROBLEM - General Chief Complaint: Cardiovascular Problem Stated Complaint: RAPID HEART RATE Time Seen by Provider: 11/25/20 12:50 Source of Information: Reports: Patient History Limitations: Reports: No Limitations - History of Present Illness INITIAL COMMENTS - FREE TEXT/NARRATIVE: 80-year-old male presents to the ED after the attending the dialysis clinic for his provisional dialysis run today. Vital signs identified a tachycardia with a heart rate of 188/min. He was therefore sent to the ED for further evaluation. He states has not been feeling too well over the last 2 to 3 days with increased shortness of breath and weakness and a little dizziness. He is not aware of heart racing in his chest. States he is a little orthopneic. Mild nonp roductive cough. No fever or chills. Perhaps slightly increased edema in his lower extremities. It is undecided as to whether or not he has a history of atrial fibrillation. Onset: Unknown/Unsure Duration: Other (On pressure. He has not been feeling well for the last 2 to 3 days suggesting he may have been running a tachycardia for a few days.) Location: Reports: Other (Patient presents to the ED with a rapid wide-complex tachycardia suggestive of ventricular tachycardia at 188 beats a minute. He is tolerating this rate fairly well.) Quality: Reports: Other (Tachyarrhythmia) Severity: Moderate Improves with: Reports: None Worsens with: Reports: None Context: Reports: Other (Spontaneous occurrence.). Denies: Activity, Exercise, Lifting, Sick Contact, Trauma Associated Symptoms: Reports: Cough, Malaise (Nonproductive), Shortness of Breath, Weakness (Grade noted in his lower extremities. He has difficulty walking at the best of the time even with his walker.). 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: Other (see below) (There has been reportedly some recent changes to his heart medications.) - Related Data Allergies Allergy/AdvReac Type Severity Reaction Status Date / Time No Known Allergies Allergy Verified 08/14/20 11:11 Home Meds: Home Meds Cholecalciferol (Vitamin D3) [Vitamin D3] 25 mcg PO DAILY 11/25/20 [History] Ferrous Sulfate 200 mg PO BID 11/25/20 [History] Levothyroxine Sodium [Levo-T] 100 mcg PO DAILY 11/25/20 [History] Metoprolol Succinate [Toprol Xl] 50 mg PO DAILY 11/25/20 [History] Midodrine 20 mg PO ASDIRECTED 11/25/20 [History] Midodrine 20 mg PO TIDAC 11/25/20 [History] Ondansetron [Zofran ODT] 4 mg PO QID PRN 11/25/20 [History] Pantoprazole [ProTONIX] 40 mg PO DAILY 11/25/20 [History] Vitc/E/Zinc/Copper/Lutein/Zeax [Icaps Areds2 Tablet] 1 tab PO BID 11/25/20 [History] Zinc Acetate [Galzin] 50 mg PO DAILY 11/25/20 [History] Past Medical History HEENT History: Reports: Impaired Vision, Macular Degeneration Other HEENT History: reading glasses Cardiovascular History: Reports: CAD, Heart Failure, High Cholesterol, Hypertension, OH, Pacemaker, Stents, Other (See Below) Other Cardiovascular History: Abdominal aortic aneurysm, pulmonary hypertension. OH in 1993 and 04/2019 Respiratory History: Reports: Sleep Apnea Other Respiratory History: wears CPAP Gastrointestinal History: Reports: GERD Genitourinary History: Reports: BPH, Other (See Below) Other Genitourinary History: stent to right kidney, microhematuria, cardiorenal syndrome with renal failure. He also states that he has had bladder cancer x3 that is no longer able to be fulgurated or cauterized and that it is blocking off at least one of his ureters which is contributing to his renal failure. He still is making some urine and is still on torsemide. 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: Reports: None Musculoskeletal History: Reports: Arthritis, Neck Pain, Chronic Neurological History: Reports: CVA, TIA Other Neuro History: needed "carotid surgery" per pt Psychiatric History: Reports: None Endocrine/Metabolic History: Reports: Diabetes, Type II, Hypothyroidism Hematologic History: Reports: Anemia, Blood Transfusion(s), Iron Deficiency, Other (See Below) Other Hematologic History: Microhematuria Immunologic History: Reports: None Oncologic (Cancer) History: Reports: Bladder, Non-Hodgkin's Lymphoma Other Oncologic History: Bladder neoplasm, bladder mass Dermatologic History: Reports: None - Infectious Disease History Infectious Disease History: Reports: None - Past Surgical History HEENT Surgical History: Reports: Cataract Surgery, Tonsillectomy, Other (See Be low) Other HEENT Surgeries/Procedures: eye surgery Cardiovascular Surgical History: Reports: Carotid Endarterectomy, Pacer, Other (See Below) Other Cardiovascular Surgeries/Procedures: Angiogram GI Surgical History: Reports: Appendectomy, Colonoscopy, EGD, Other (See Below) Other GI Surgeries/Procedures: Sigmoidoscopy Male Surgical History: Reports: TURBT-Transurethral Resection of Bladder Tumor, Other (See Below) Social & Family History - Family History Family Medical History: No Pertinent Family History - Caffeine Use Caffeine Use: Reports: Coffee - Living Situation & Occupation Living situation: Reports: , with Spouse (In their own home in [facility]) Occupation: Retired ED ROS GENERAL - Review of Systems Review Of Systems: See Below Constitutional: Reports: Malaise, Weakness, Fatigue, Decreased Appetite. Denies: Fever, Chills, Weight Loss HEENT: Reports: Glasses, Other Respiratory: Reports: Shortness of Breath (Does have visual acuity problems.), Wheezing, Cough (There is no wheezing). Denies: Pleuritic Chest Pain, Sputum, Hemoptysis (Productive cough) Cardiovascular: Reports: Blood Pressure Problem (Running low today. Usually has high blood pressure), Dyspnea on Exertion ( chronic edema both lower extremities), Edema (Occasionally the last few days), Lightheadedness. Denies: Chest Pain, Claudication, Orthopnea, Palpitations (Not aware of any palpitations or racing heart) Endocrine: Reports: Fatigue GI/Abdominal: Reports: Constipation, Decreased Appetite : Reports: Other (Still making some urine daily but not in large quantities.) Musculoskeletal: Reports: Neck Pain, Shoulder Pain, Back Pain, Joint Pain (Knees and hips.) Skin: Reports: Bruising Neurological: Reports: No Symptoms, Dizziness, Difficulty Walking (Ox with the aid of a walker with a good deal of difficulty.), Weakness. Denies: Confusion, Numbness, Syncope, Tingling Psychiatric: Reports: No Symptoms Hematologic/Lymphatic: Reports: Anemia Immunologic: Reports: No Symptoms ED EXAM, GENERAL - Physical Exam Exam: See Below Exam Limited By: No Limitations General Appearance: Alert, WD/WN, No Apparent Distress, Other (Temperature is 35.5 which is likely inaccurate. Heart rate was 198/min and on the monitor shows a wide-complex tachycardia compatible with ventricular tachycardia. Respiratory of 21 to 24/min with O2 sats of 97% room air. BP low at 86/62) Eye Exam: Bilateral Eye: Normal Inspection (Mild blepharal pallor. No scleral icterus.), PERRL Throat/Mouth: Normal Inspection, Normal Lips, Normal Oropharynx. No: Normal Teeth Head: Atraumatic, Normocephalic Neck: Normal Inspection, Limited Range of Motion (Crepitus on lateral rotation and flexion. Loss of 10 degrees in both lateral flexion and), Other (Devious surgery done on the right carotid artery. 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 No: Carotid Bruit, Lymphadenopathy (L) ( rotation), Lymphadenopathy (R) Respiratory/Chest: Lungs Clear, Respiratory Distress (Tachypnea.), Decreased Breath Sounds (Creased air entry to the lower 20% of lung carlson bilaterally.). No: Rales, Rhonchi, Wheezing Cardiovascular: No Murmur, No Rub, Tachycardia (Wide-complex tachycardia at 188/ min on the monitor.). No: Normal Peripheral Pulses, Regular Rate, Rhythm, No Edema Peripheral Pulses: 1+: Carotid (L), Posterior Tibial (L) (Pulses in his feet are very difficult to palpate due to severe dependent edema bilaterally.), Posterior Tibial (R), Dorsalis Pedis (L), Dorsalis Pedis (R), 2+: Carotid (R) GI/Abdominal: Normal Bowel Sounds, Soft, Non-Tender, No Organomegaly, No Distention, No Abnormal Bruit, Pelvis Stable, Other (BC abdomen. Firm to palpation mildly tympany to percussion suggestive of aerophagia in the upper abdomen.) Back Exam: Normal Inspection, Decreased Range of Motion. No: CVA Tenderness (L), CVA Tenderness (R) Extremities: Pedal Edema, Limited Range of Motion (Both hips with internal and external rotation severely compromised. Evidence of osteoarthritic changes both knees.). No: Normal Range of Motion Neurological: Alert (4+ pitting edema both lower extremities up to the knees bilaterally.), Oriented, CN II-XII Intact, Normal Cognition, Abnormal Gait (Ox with the aid of a walker with good deal of difficulty.) Psychiatric: Normal Affect, Normal Mood Skin Exam: Warm, Dry, Intact, Normal Color, No Rash #1 Interpretation EKG Date: 11/25/20 Time: 12:55 Rhythm: Other (Wide-complex tachycardia at 188 bpm compared with ventricular tachycardia.) Rate (Beats/Min): 188 Heidelberg: RAD-Right Heidelberg Deviation (162 degrees) P-Wave: Absent QRS: Other (Wide-complex tachycardia in all leads.) EKG Interpretation Comments: Abnormal ECG #2 Interpretation EKG Date: 11/25/20 Time: 15:41 Rhythm: Other (No discernible P waves. Suspect accelerated junctional rhythm) Rate (Beats/Min): 90 Heidelberg: LAD-Left Heidelberg Deviation P-Wave: Absent (-77 degrees) QRS: Other (Q waves leads II, III and aVF compared with old inferior wall myocardial infarction. There is very poor R wave transition with near Q waves from V3 to V6 compared with old anteroseptal myocardial infarction. There is a nonspecific intraventricular conduction delay pattern giving him wide complexes) ST-T: Other (T wave inversion with ST segment depression in leads I and aVL suggesting ischemia as well.) QT: Prolonged (Mildly prolonged) Course - Vital Signs Last Recorded V/S: Last Vital Signs Temp 35.5 C L 11/25/20 13:08 Pulse 126 H 11/25/20 15:17 Resp 21 H 11/25/20 13:08 BP 110/64 11/25/20 15:17 Pulse Ox 100 11/25/20 13:46 - Orders/Labs/Meds Orders: Active Orders 24 hr Category Date Time Status EKG 12 Lead [EKG Documentation Completion] [RC] STAT Care 11/25/20 15:04 Active EKG Documentation Completion [RC] STAT Care 11/25/20 15:32 Active Amiodarone In Dextrose,Iso-Osm [Nexterone in Dextrose Med 11/25/20 13:15 Active 360 MG/200 ML] 360 mg in 200 ml IV ASDIRECTED Medication Orders Amiodarone HCl/Dextrose (Nexterone In Dextrose 360 Mg/200 Ml) 360 mg in 200 mls @ 33.333 mls/hr IV ASDIRECTED COURT; Protocol Last Admin: 11/25/20 13:27 Dose: 33.333 mls/hr Documented by: WILLIAMMercedes Labs: Laboratory Tests 11/25/20 11/25/20 11/25/20 Range/Units 12:55 12:55 12:55 WBC 7.11 (4.23-9.07) K/mm3 RBC 2.97 L (4.63-6.08) M/mm3 Hgb 10.9 L D (13.7-17.5) gm/dl Hct 33.7 L (40.1-51.0) % MCV 113.5 H D (79.0-92.2) fl MCH 36.7 H (25.7-32.2) pg MCHC 32.3 (32.2-35.5) g/dl RDW Std Deviation 71.0 H (35.1-43.9) fL Plt Count 181 D (163-337) K/mm3 MPV 10.4 (9.4-12.3) fl Neut % (Auto) 63.1 (34.0-67.9) % Lymph % (Auto) 24.2 (21.8-53.1) % Mckenzie % (Auto) 11.7 (5.3-12.2) % Eos % (Auto) 0.6 L (0.8-7.0) Baso % (Auto) 0.3 (0.1-1.2) % Neut # (Auto) 4.49 (1.78-5.38) K/mm3 Lymph # (Auto) 1.72 (1.32-3.57) K/mm3 Mckenzie # (Auto) 0.83 H (0.30-0.82) K/mm3 Eos # (Auto) 0.04 (0.04-0.54) K/mm3 Baso # (Auto) 0.02 (0.01-0.08) K/mm3 Manual Slide Review Abnormal smear PT (9.7-12.0) SECONDS INR APTT (21.7-31.4) SECONDS Sodium 134 L (136-145) mEq/L Potassium 5.9 H (3.5-5.1) mEq/L Chloride 95 L (98-107) mEq/L Carbon Dioxide 25 (21-32) mEq/L Anion Gap 19.9 H (5-15) BUN 38 H D (7-18) mg/dL Creatinine 5.5 H D (0.7-1.3) mg/dL Est Cr Clr Drug Dosing 9.63 mL/min Estimated GFR (MDRD) 10 (>60) mL/min BUN/Creatinine Ratio 6.9 L (14-18) Glucose 198 H (70-99) mg/dL Lactic Acid (0.4-2.0) mmol/L Calcium 8.8 (8.5-10.1) mg/dL Magnesium 1.8 (1.8-2.4) mg/dL Total Bilirubin 0.4 (0.2-1.0) mg/dL AST 42 H (15-37) U/L ALT 34 (16-63) U/L Alkaline Phosphatase 291 H (46-116) U/L Troponin I 0.249 H* (0.00-0.056) ng/mL C-Reactive Protein 2.7 H* (<1.0) mg/dL NT-Pro-B Natriuret Pep > 31552 H (0-450) pg/mL Total Protein 7.4 (6.4-8.2) g/dl Albumin 2.6 L (3.4-5.0) g/dl Globulin 4.8 gm/dL Albumin/Globulin Ratio 0.5 L (1-2) TSH 3rd Generation (0.358-3.74) uIU/mL SARS-CoV-2 RNA (LEONARD) (NEGATIVE) 11/25/20 11/25/20 11/25/20 Range/Units 12:55 13:40 13:40 WBC (4.23-9.07) K/mm3 RBC (4.63-6.08) M/mm3 Hgb (13.7-17.5) gm/dl Hct (40.1-51.0) % MCV (79.0-92.2) fl MCH (25.7-32.2) pg MCHC (32.2-35.5) g/dl RDW Std Deviation (35.1-43.9) fL Plt Count (163-337) K/mm3 MPV (9.4-12.3) fl Neut % (Auto) (34.0-67.9) % Lymph % (Auto) (21.8-53.1) % Mckenzie % (Auto) (5.3-12.2) % Eos % (Auto) (0.8-7.0) Baso % (Auto) (0.1-1.2) % Neut # (Auto) (1.78-5.38) K/mm3 Lymph # (Auto) (1.32-3.57) K/mm3 Mckenzie # (Auto) (0.30-0.82) K/mm3 Eos # (Auto) (0.04-0.54) K/mm3 Baso # (Auto) (0.01-0.08) K/mm3 Manual Slide Review PT 12.5 H (9.7-12.0) SECONDS INR 1.17 APTT 36.7 H (21.7-31.4) SECONDS Sodium (136-145) mEq/L Potassium (3.5-5.1) mEq/L Chloride (98-107) mEq/L Carbon Dioxide (21-32) mEq/L Anion Gap (5-15) BUN (7-18) mg/dL Creatinine (0.7-1.3) mg/dL Est Cr Clr Drug Dosing mL/min Estimated GFR (MDRD) (>60) mL/min BUN/Creatinine Ratio (14-18) Glucose (70-99) mg/dL Lactic Acid (0.4-2.0) mmol/L Calcium (8.5-10.1) mg/dL Magnesium (1.8-2.4) mg/dL Total Bilirubin (0.2-1.0) mg/dL AST (15-37) U/L ALT (16-63) U/L Alkaline Phosphatase (46-116) U/L Troponin I (0.00-0.056) ng/mL C-Reactive Protein (<1.0) mg/dL NT-Pro-B Natriuret Pep (0-450) pg/mL Total Protein (6.4-8.2) g/dl Albumin (3.4-5.0) g/dl Globulin gm/dL Albumin/Globulin Ratio (1-2) TSH 3rd Generation 11.546 H (0.358-3.74) uIU/mL SARS-CoV-2 RNA (LEONARD) (NEGATIVE) 11/25/20 11/25/20 Range/Units 13:40 13:57 WBC (4.23-9.07) K/mm3 RBC (4.63-6.08) M/mm3 Hgb (13.7-17.5) gm/dl Hct (40.1-51.0) % MCV (79.0-92.2) fl MCH (25.7-32.2) pg MCHC (32.2-35.5) g/dl RDW Std Deviation (35.1-43.9) fL Plt Count (163-337) K/mm3 MPV (9.4-12.3) fl Neut % (Auto) (34.0-67.9) % Lymph % (Auto) (21.8-53.1) % Mckenzie % (Auto) (5.3-12.2) % Eos % (Auto) (0.8-7.0) Baso % (Auto) (0.1-1.2) % Neut # (Auto) (1.78-5.38) K/mm3 Lymph # (Auto) (1.32-3.57) K/mm3 Mckenzie # (Auto) (0.30-0.82) K/mm3 Eos # (Auto) (0.04-0.54) K/mm3 Baso # (Auto) (0.01-0.08) K/mm3 Manual Slide Review PT (9.7-12.0) SECONDS INR APTT (21.7-31.4) SECONDS Sodium (136-145) mEq/L Potassium (3.5-5.1) mEq/L Chloride (98-107) mEq/L Carbon Dioxide (21-32) mEq/L Anion Gap (5-15) BUN (7-18) mg/dL Creatinine (0.7-1.3) mg/dL Est Cr Clr Drug Dosing mL/min Estimated GFR (MDRD) (>60) mL/min BUN/Creatinine Ratio (14-18) Glucose (70-99) mg/dL Lactic Acid 4.2 H* (0.4-2.0) mmol/L Calcium (8.5-10.1) mg/dL Magnesium (1.8-2.4) mg/dL Total Bilirubin (0.2-1.0) mg/dL AST (15-37) U/L ALT (16-63) U/L Alkaline Phosphatase (46-116) U/L Troponin I (0.00-0.056) ng/mL C-Reactive Protein (<1.0) mg/dL NT-Pro-B Natriuret Pep (0-450) pg/mL Total Protein (6.4-8.2) g/dl Albumin (3.4-5.0) g/dl Globulin gm/dL Albumin/Globulin Ratio (1-2) TSH 3rd Generation (0.358-3.74) uIU/mL SARS-CoV-2 RNA (LEONARD) Negative (NEGATIVE) Meds: Medications Generic Name Dose Route Start Last Admin Trade Name Sweta PRN Reason Stop Dose Admin Amiodarone HCl/Dextrose 360 mg in 200 mls @ 33.333 mls/hr 11/25/20 13:15 11/25/20 13:27 Nexterone In Dextrose 360 Mg/200 Ml IV 33.333 mls/hr ASDIRECTED COURT Administration Protocol Discontinued Medications Generic Name Dose Route Start Last Admin Trade Name Freq PRN Reason Stop Dose Admin Dextrose/Water 50 ml 11/25/20 16:21 11/25/20 17:04 50% Dextrose In Water 50 Ml Syringe IVPUSH 11/25/20 16:22 50 ml ONETIME ONE Administration Heparin Sodium (Porcine) 1,800 units 11/25/20 13:00 11/25/20 15:19 Heparin Sodium 1,000 Units/Ml 2 Ml Vial IV 11/25/20 13:01 1,800 units ONETIME ONE Administration Heparin Sodium (Porcine) 1,700 units 11/25/20 13:00 11/25/20 15:19 Heparin Sodium 1,000 Units/Ml 2 Ml Vial IV 11/25/20 13:01 1,700 units ONETIME ONE Administration Amiodarone HCl/Dextrose 100 mls @ 600 mls/hr 11/25/20 13:02 11/25/20 13:16 Nexterone In Dextrose 150 Mg/100 Ml IV 11/25/20 13:11 600 mls/hr .BOLUS ONE Administration Protocol Insulin Human Regular 10 unit 11/25/20 16:22 11/25/20 17:04 Insulin Regular, Human 100 Units/Ml 3 Ml Vial IV 11/25/20 16:23 10 unit ONETIME ONE Administration Metoprolol Tartrate 5 mg 11/25/20 15:03 11/25/20 15:17 Metoprolol Tartrate 5 Mg/5 Ml Sdv IVPUSH 11/25/20 15:04 5 mg ONETIME ONE Administration Sodium Polystyrene Sulfonate 30 gm 11/25/20 15:43 11/25/20 15:59 Sodium Polystyrene Sulfonate 15 Gm/60 Ml Susp 60 Ml Bot PO 07/12/21 15:44 30 gm ONETIME ONE Administration - Radiology Interpretation Free Text/Narrative:: 80-year-old male presents to the ED from the dialysis unit where he presented for his scheduled dialysis run today. His vital signs identified that he had a rapid heart rate in the 190s. His blood pressure was also found to be low. He was therefore transported to the emergency department for further evaluation. On the monitor he is showing signs of a wide-complex tachycardia compatible with ventricular tachycardia. I am going to try and ascertain an old ECG to identify previous rate. Is tolerating this rate well although his blood pressure is 86 systolic. He complains of some dyspnea but no central chest pain. He is mildly lightheaded and dizzy since he states has been feeling this way for the last 2 to 3 days suggesting this tachycardia is not new. He states his child and family services specialist has been changing around some of his cardiac meds recently. Plan he will be given amiodarone 150 mg bolus over 10 minutes and then started on amiodarone drip at 60 mg/h. T labs including cardiac markers BNP and magnesium ordered with portable chest x-ray. - Re-Assessments/Exams Free Text/Narrative Re-Assessment/Exam: 11/25/20 13:28 ECG done 14 August of this year revealed that he has sinus rhythm at 99/min with a prolonged DC interval and a nonspecific intraventricular conduction delay with left axis deviation. Identified to have left ventricular hypertrophy pattern with strain pattern. 11/25/20 13:30 heart rate is starting to slow down to the 130s after the 150 mg bolus of amiodarone. 11/25/20 13:38 portable chest x-ray reveals heart size to be mildly prominent. Upper mediastinum is within normal limits. Pulmonary vessels are congested. Small bilateral pleural effusions are evident. Pacemaker appreciated right upper anterior chest. Dialysis catheter also appreciated originating in the left arm. Findings compatible with congestive heart failure. 11/25/20 14:57 heart rate is staying at 126 bpm wide complex. BP 108/64. I am going to give him a small dose of Lopressor 5 mg IV to see if we can further reduce his heart rate. O2 sats are 98% on room air. 11/25/20 15:00 Labs reveal a white count of 7.11 with 63% neutrophils and 24% lymphocytes on the auto differential. Hemoglobin slightly low at 10.9 with hematocrit of 33.7. MCV elevated at 113.5 compatible with renal disease. PT is 12.5 with an INR of 1.17 and a PTT of 36.7. Sodium is 134 and potassium is elevated at 5.9. Chloride is 95 with a bicarb of 25. Anion gap is 19.9. BUN is 38 with a creatinine of 5.5 and a GFR of only 10. Glucose is 198. Lactic acid is 4.2. Calcium is 8.8. Magnesium is 1.8 with a total bilirubin of 0.4. AST mildly elevated at 42. ALT normal at 34. Alkaline phosphatase elevated at 291 secondary to tertiary hyperparathyroidism. Troponin I is 0.249 moderately elevated and concerning for possible myocardial infarction versus stress reaction from tachyarrhythmia. C-reactive protein is 2.7 BNP is greater than 35,000. Total protein 7.4 with an albumin fraction of 2.6. TSH is elevated at 11.546 indicating he is undertreated for his hypothyroidism. COVID-19 screen is pending. 11/25/20 15:31 heart rate is currently down to 91 and showing a wide-complex tachycardia. Blood pressure is hanging in there at 95/64. O2 sats 97% on room air. Repeat ECG will be ordered. Over 19 screen is negative. Due to his elevated potassium of 5.9 I plan on giving him Kayexalate 30 g by mouth. 11/25/20 15:[address] Hubbard emergency room physician at [facility] in [place] through the 1 call nurse and he has graciously accepted care of this patient. At present they do not have a bed for him at [facility] and they will phone when a bed becomes available. 11/25/20 16:23 give an amp of D50 and 10 units of regular insulin IV for his hyperkalemia. 11/25/20 16:32 heart rate remains 90/min with wide complex. BP is 95/61 Departure - Departure Time of Disposition: 17:14 Disposition: DC/Tfer to Acute Hospital 02 Reason for Transfer *Q: Other Condition: Poor Clinical Impression: Wide-complex tachycardia, Hemodialysis patient, Hyperkalemia, Elevated troponin I level, Lactic acidosis Anemia Qualifiers: Anemia type: due to chronic kidney disease Referrals: August Reyes MD [Primary Care Provider] - Forms: ED Department Discharge Additional Instructions: Patient is transferred to [facility] in [place] as he is going to need urgent hemodialysis treatment. He presented to the ED due to wide-complex tachycardia at 188/min slowed down with IV amiodarone and 1 dose of Lopressor 5 mg IV. Does have an elevated troponin I possibly from stress effect or myocardial infarction from tachyarrhythmia. Mild hyperkalemia at 5.9 treated with Kayexalate 30 g by mouth and 1 amp of D50 and 10 units of regular insulin IV. IV is running at 150 mils per hour in spite of being in significant congestive heart failure with BNP of 35,000 due to renal failure. Sepsis Event Note (ED) - Focused Exam Vital Signs: Vital Signs Temp Pulse Pulse Resp BP BP Pulse Ox 11/25/20 15:17 126 H 110/64 11/25/20 13:46 125 H 102/58 L 100 11/25/20 13:08 35.5 C L 198 H 21 H 86/62 L 97 - My Orders Last 24 Hours: My Active Orders 11/25/20 13:15 Amiodarone In Dextrose,Iso-Osm [Nexterone in Dextrose 360 MG/200 ML] 360 mg in 200 ml IV ASDIRECTED 11/25/20 15:04 EKG 12 Lead [EKG Documentation Completion] [RC] STAT 11/25/20 15:32 EKG Documentation Completion [RC] STAT - Assessment/Plan Last 24 Hours: My Active Orders 11/25/20 13:15 Amiodarone In Dextrose,Iso-Osm [Nexterone in Dextrose 360 MG/200 ML] 360 mg in 200 ml IV ASDIRECTED 11/25/20 15:04 EKG 12 Lead [EKG Documentation Completion] [RC] STAT 11/25/20 15:32 EKG Documentation Completion [RC] STAT
--- NOTE | 2020-11-25 13:29 | CR ---
Chest: Portable view of the chest was obtained. Comparison: Prior chest x-ray of 04/19/19. Heart size is slightly prominent. Upper mediastinum is within normal limits. Pulmonary vessels are congested. Small bilateral pleural effusions are seen. Pacemaker is also noted. Dialysis catheter is seen. Impression: 1. Pacemaker and dialysis catheter. 2. Findings compatible with mild CHF as described above. Diagnostic code #3
[2020-11-25] MEDS ORDERED: Metoprolol Tartrate 5 MG/5 ML SDV IVPUSH ONE (15:03)
[2020-11-25] MEDS ORDERED: Sodium Polystyrene Sulfonate 15 GM/60 ML Susp 60 ML Bot PO ONE (15:43)
[2020-11-25] MEDS ORDERED: 50% Dextrose in Water 50 ML Syringe IVPUSH ONE (16:21)
[2020-11-25] MEDS ORDERED: Insulin Regular, Human 100 Units/ML 3 ML Vial IV ONE (16:22)
== END 2020-11-25 18:41 ==
LOC: JD.ED 12:44
DX: R00.0 Tachycardia, unspecified (principal); E87.5 Hyperkalemia; R79.89 Other specified abnormal findings of blood chemistry; E87.2 Acidosis; I13.0 Hypertensive heart and chronic kidney disease with heart failure and stage 1 through stage 4 chronic kidney disease, or unspecified chronic kidney disease; E11.22 Type 2 diabetes mellitus with diabetic chronic kidney disease; N18.9 Chronic kidney disease, unspecified; I50.9 Heart failure, unspecified; I25.10 Atherosclerotic heart disease of native coronary artery without angina pectoris; I25.2 Old myocardial infarction; K21.9 Gastro-esophageal reflux disease without esophagitis; E03.9 Hypothyroidism, unspecified; R94.31 Abnormal electrocardiogram [ECG] [EKG]; Z79.899 Other long term (current) drug therapy; Z20.822 Contact with and (suspected) exposure to COVID-19
CPT/HCPCS: 36415; 71045; 80053; 83605; 83735; 83880; 84443; 84484; 85025; 85610; 85730; 86140; 93005; 96365; 96366; 96375; 99285; A9270; J0282; J1644; J1815; J3490; U0002; 93010

== ENCOUNTER 2020-12-05 15:04 | Emergency (ER) | payer MEDICARE, OTHER ==
[2020-12-05] MEDS ORDERED: Sodium Chloride 0.9% 10 ML Syringe FLUSH PRN (15:37)
--- NOTE | 2020-12-05 16:56 | EDM.PDOC ---
ED HPI GENERAL MEDICAL PROBLEM - General Chief Complaint: Gastrointestinal Problem Stated Complaint: DIARHHEA AND BLEEDING Time Seen by Provider: 12/05/20 15:21 Source of Information: Reports: Patient History Limitations: Reports: No Limitations - History of Present Illness INITIAL COMMENTS - FREE TEXT/NARRATIVE: The patient presents with bloody diarrhea. He was seen here last week for atrial fibrillation with RVR. He was sent to [facility] in [place] and rate was controlled and he was put on eliquis. Four days ago he started having loose stools and now he has bloody diarrhea. He has a history of low EF at 17% and his family says he has an LAD that is 70% occluded but they cannot get at it due to other stents. He denies fever, chills, cough, chest pain, abdominal pain, nausea or vomiting. He does have some shortness of breath. Onset: Gradual Duration: Day(s): Severity: Moderate Improves with: Reports: None Worsens with: Reports: None Associated Symptoms: Denies: Fever/Chills, Nausea/Vomiting - Related Data Allergies Allergy/AdvReac Type Severity Reaction Status Date / Time No Known Allergies Allergy Verified 12/05/20 15:26 Home Meds: Home Meds Cholecalciferol (Vitamin D3) [Vitamin D3] 25 mcg PO DAILY 11/25/20 [History] Ferrous Sulfate 200 mg PO BID 11/25/20 [History] Levothyroxine Sodium [Levo-T] 100 mcg PO DAILY 11/25/20 [History] Metoprolol Succinate [Toprol Xl] 25 mg PO TUTH 11/25/20 [History] Midodrine 20 mg PO TIDAC 11/25/20 [History] Ondansetron [Zofran ODT] 4 mg PO QID PRN 11/25/20 [History] Pantoprazole [ProTONIX] 40 mg PO DAILY 11/25/20 [History] Vitc/E/Zinc/Copper/Lutein/Zeax [Icaps Areds2 Tablet] 1 tab PO BID 11/25/20 [History] Zinc Acetate [Galzin] 50 mg PO DAILY 11/25/20 [History] Amiodarone HCl 400 mg PO BID 12/05/20 [History] Apixaban [Eliquis] 5 mg PO BID 12/05/20 [History] Aspirin [Low Dose Aspirin EC] 81 mg PO DAILY 12/05/20 [History] Cyanocobalamin (Vitamin B-12) [B-12] 1,000 mcg PO DAILY 12/05/20 [History] Digoxin 0.0625 mg PO MOWEFR 12/05/20 [History] Nitroglycerin 0.4 mg SL ASDIRECTED PRN 12/05/20 [History] atorvaSTATin [Lipitor] 40 mg PO DAILY 12/05/20 [History] Past Medical History HEENT History: Reports: Impaired Vision, Macular Degeneration Other HEENT History: reading glasses Cardiovascular History: Reports: CAD, Heart Failure, High Cholesterol, Hypertension, SD, Pacemaker, Stents, Other (See Below) Other Cardiovascular History: Abdominal aortic aneurysm, pulmonary hypertension. SD in 1993 and 04/2019 Respiratory History: Reports: Sleep Apnea Other Respiratory History: wears CPAP Gastrointestinal History: Reports: GERD Genitourinary History: Reports: BPH, Other (See Below) Other Genitourinary History: stent to right kidney, microhematuria, cardiorenal syndrome with renal failure. He also states that he has had bladder cancer x3 that is no longer able to be fulgurated or cauterized and that it is blocking off at least one of his ureters which is contributing to his renal failure. He still is making some urine and is still on torsemide. [employer] History: Reports: None Musculoskeletal History: Reports: Arthritis, Neck Pain, Chronic Neurological History: Reports: CVA, TIA Other Neuro History: carotid endardectomy Psychiatric History: Reports: None Endocrine/Metabolic History: Reports: Diabetes, Type II, Hypothyroidism Hematologic History: Reports: Anemia, Blood Transfusion(s), Iron Deficiency, Other (See Below) Other Hematologic History: Microhematuria Immunologic History: Reports: None Oncologic (Cancer) History: Reports: Bladder, Non-Hodgkin's Lymphoma Other Oncologic History: Bladder neoplasm, bladder mass Dermatologic History: Reports: None - Infectious Disease History Infectious Disease History: Reports: Measles - Past Surgical History Head Surgeries/Procedures: Reports: None HEENT Surgical History: Reports: Cataract Surgery, Tonsillectomy, Other (See Below) Other HEENT Surgeries/Procedures: eye surgery Cardiovascular Surgical History: Reports: Carotid Endarterectomy, Pacer, Other (See Below) Other Cardiovascular Surgeries/Procedures: Angiogram Respiratory Surgical History: Reports: None GI Surgical History: Reports: Appendectomy, Colonoscopy, EGD, Other (See Below) Other GI Surgeries/Procedures: Sigmoidoscopy Male Surgical History: Reports: TURBT-Transurethral Resection of Bladder Tumor, Other (See Below) Other Male Surgeries/Procedures: cystoscopy with stent placement. Fisutla to left arm for dialysis Endocrine Surgical History: Reports: None Neurological Surgical History: Reports: None Musculoskeletal Surgical History: Reports: None Oncologic Surgical History: Reports: None Other Oncologic Surgeries/Procedures: bone marrow biopsy Dermatological Surgical History: Reports: None Social & Family History - Family History Family Medical History: No Pertinent Family History - Tobacco Use Tobacco Use Status *Q: Never Tobacco User Second Hand Smoke Exposure: No - Caffeine Use Caffeine Use: Reports: Coffee - Recreational Drug Use Recreational Drug Use: No - Living Situation & Occupation Living situation: Reports: , with Spouse (In their own home in [facility]) Occupation: Retired ED ROS GENERAL - Review of Systems Review Of Systems: See Below Constitutional: Reports: No Symptoms HEENT: Reports: No Symptoms Respiratory: Reports: Shortness of Breath. Denies: Cough Cardiovascular: Reports: No Symptoms Endocrine: Reports: No Symptoms GI/Abdominal: Reports: Bloody Stool : Reports: No Symptoms Musculoskeletal: Reports: No Symptoms ED EXAM, GI/ABD - Physical Exam Exam: See Below Exam Limited By: No Limitations General Appearance: Alert, No Apparent Distress Ears: Normal External Exam Nose: Normal Inspection Head: Atraumatic, Normocephalic Neck: Normal Inspection Respiratory/Chest: No Respiratory Distress, Lungs Clear, Normal Breath Sounds Cardiovascular: Regular Rate, Rhythm, No Edema, No Murmur GI/Abdominal Exam: Soft, Non-Tender, No Organomegaly, No Mass Back Exam: Normal Inspection Extremities: Normal Inspection #1 Interpretation EKG Date: 12/05/20 Time: 16:50 Rhythm: NSR Rate (Beats/Min): 78 Weston: LAD-Left Weston Deviation P-Wave: Present QRS: LBBB ST-T: Normal QT: Normal Course - Vital Signs Last Recorded V/S: Last Vital Signs Temp 96.4 F L 12/05/20 15:20 Pulse 78 12/05/20 15:20 Resp 18 12/05/20 15:20 BP 98/48 L 12/05/20 15:20 Pulse Ox 95 12/05/20 17:09 - Orders/Labs/Meds Orders: Active Orders 24 hr Category Date Time Status Cardiac Monitoring [RC] . DIRECTED Care 12/05/20 15:37 Active EKG Documentation Completion [RC] ASDIRECTED Care 12/05/20 16:48 Active Peripheral IV Care [RC] . DIRECTED Care 12/05/20 15:38 Active RT Aerosol Therapy [RC] ASDIRECTED Care 12/05/20 17:09 Active CBC WITH AUTO DIFF [HEME] Stat Lab 12/05/20 17:38 Ordered CORONAVIRUS COVID-19 LEONARD [MOLEC] Stat Lab 12/05/20 17:35 Received Sodium Chloride 0.9% @ 150 MLS/HR (1000ml Bag) Med 12/05/20 18:00 Ordered Sodium Chloride 0.9% [Normal Saline] 1,000 ml IV ASDIRECTED Sodium Chloride 0.9% [Saline Flush] Med 12/05/20 15:37 Active 10 ml FLUSH ASDIRECTED PRN Peripheral IV Insertion Adult [OM.PC] Stat Oth 12/05/20 15:37 Ordered EKG 12 Lead [EK] Stat Ther 12/05/20 16:48 Ordered Medication Orders Sodium Chloride (Sodium Chloride 0.9% 10 Ml Syringe) 10 ml FLUSH ASDIRECTED PRN PRN Reason: Keep Vein Open Last Admin: 12/05/20 15:55 Dose: 10 ml Documented by: JEFF Labs: Laboratory Tests 12/05/20 12/05/20 12/05/20 Range/Units 15:55 15:55 15:55 WBC 7.51 (4.23-9.07) K/mm3 RBC 2.28 L (4.63-6.08) M/mm3 Hgb 7.9 L D (13.7-17.5) gm/dl Hct 25.4 L (40.1-51.0) % MCV 111.4 H (79.0-92.2) fl MCH 34.6 H (25.7-32.2) pg MCHC 31.1 L (32.2-35.5) g/dl RDW Std Deviation 65.3 H (35.1-43.9) fL Plt Count 183 (163-337) K/mm3 MPV 9.9 (9.4-12.3) fl Neut % (Auto) 51.8 (34.0-67.9) % Lymph % (Auto) 30.9 (21.8-53.1) % Douglas % (Auto) 15.8 H (5.3-12.2) % Eos % (Auto) 0.9 (0.8-7.0) Baso % (Auto) 0.3 (0.1-1.2) % Neut # (Auto) 3.89 (1.78-5.38) K/mm3 Lymph # (Auto) 2.32 (1.32-3.57) K/mm3 Douglas # (Auto) 1.19 H (0.30-0.82) K/mm3 Eos # (Auto) 0.07 (0.04-0.54) K/mm3 Baso # (Auto) 0.02 (0.01-0.08) K/mm3 Manual Slide Review Abnormal smear Sodium 138 (136-145) mEq/L Potassium 5.9 H (3.5-5.1) mEq/L Chloride 101 (98-107) mEq/L Carbon Dioxide 29 (21-32) mEq/L Anion Gap 13.9 (5-15) BUN 52 H (7-18) mg/dL Creatinine 4.1 H D (0.7-1.3) mg/dL Est Cr Clr Drug Dosing 12.92 mL/min Estimated GFR (MDRD) 14 (>60) mL/min BUN/Creatinine Ratio 12.7 L (14-18) Glucose 107 H (70-99) mg/dL Calcium 8.6 (8.5-10.1) mg/dL Total Bilirubin 0.3 (0.2-1.0) mg/dL AST 21 (15-37) U/L ALT 23 (16-63) U/L Alkaline Phosphatase 217 H (46-116) U/L Total Protein 6.7 (6.4-8.2) g/dl Albumin 2.5 L (3.4-5.0) g/dl Globulin 4.2 gm/dL Albumin/Globulin Ratio 0.6 L (1-2) Blood Type A POSITIVE Gel Antibody Screen Negative Meds: Medications Generic Name Dose Route Start Last Admin Trade Name Freq PRN Reason Stop Dose Admin Sodium Chloride 10 ml 12/05/20 15:37 12/05/20 15:55 Sodium Chloride 0.9% 10 Ml Syringe FLUSH 10 ml ASDIRECTED PRN Administration Keep Vein Open Discontinued Medications Generic Name Dose Route Start Last Admin Trade Name Sweta PRN Reason Stop Dose Admin Albuterol 2.5 mg 12/05/20 17:09 12/05/20 17:21 Albuterol 0.083% 2.5 Mg/3 Ml Neb Soln NEB 12/05/20 17:10 2.5 mg ONETIME ONE Administration Calcium Gluconate 1 gm 12/05/20 17:09 12/05/20 17:28 Calcium Gluconate 10% 1 Gm/10 Ml Sdv IVPUSH 12/05/20 17:10 1 gm ONETIME ONE Administration Dextrose/Water 50 ml 12/05/20 17:10 12/05/20 17:36 50% Dextrose In Water 50 Ml Syringe IVPUSH 12/05/20 17:11 50 ml ONETIME ONE Administration Insulin Human Regular 10 unit 12/05/20 17:10 12/05/20 17:32 Insulin Regular, Human 100 Units/Ml 3 Ml Vial SUBCUT 12/05/20 17:11 10 unit ONETIME ONE Administration Sodium Polystyrene Sulfonate 45 gm 12/05/20 17:09 12/05/20 17:39 Sodium Polystyrene Sulfonate 15 Gm/60 Ml Susp 60 Ml Bot PO 12/05/20 17:10 45 gm NOW ONE Administration - Re-Assessments/Exams Free Text/Narrative Re-Assessment/Exam: 12/05/20 16:58 I ordered an IV saline lock and labs. His Hgb was low at 7.9. His K was elevated at 5.9. His creatinine is elevated at 4.1. I then did an EKG and it shows a LBBB and he has a history of that. 12/05/20 17:25 His Hgb is low at 7.9. His K is elevated at 5.9. His creatinine is elevated at 5.9. I ordered kaexylate 45mg PO, calcium gluconate 1gram IV, D50 1amp, insulin 10 units subcutaneous, and albuterol. That should help bring his potassium down. I feel he needs to be admitted. He is on dialysis and cannot be admitted here. I called [facility] in [place] and they will call me back. 12/05/20 17:49 I talked with the hospitalist personnel generalist manager and he felt the patient can stop the eliquis and go home. I am not comfortable with that plan. I called our hospitalist and discussed the case and he felt the patient needed to be admitted but unfortunately we cannot admit him here due to the patient being on dialysis. 12/05/20 17:56 I called [facility] and talked with Dr Davalos and he accepted the patient. Departure - Departure Time of Disposition: 18:00 Disposition: DC/Tfer to [facility] 02 Condition: Poor Clinical Impression: Chronic kidney disease with end stage renal failure on dialysis, Lower GI bleed, Hyperkalemia Anemia Qualifiers: Anemia type: other cause Other causes of anemia: other cause, not classified Qualified Code(s): D64.89 - Other specified anemias - Discharge Information Referrals: August Reyes MD [Primary Care Provider] - Forms: ED Department Discharge Sepsis Event Note (ED) - Evaluation Sepsis Screening Result: No Definite Risk - Focused Exam Vital Signs: Vital Signs Temp Pulse Resp BP Pulse Ox Pulse Ox 12/05/20 17:09 95 12/05/20 15:20 96.4 F L 78 18 98/48 L 100 - My Orders Last 24 Hours: My Active Orders 12/05/20 15:37 Cardiac Monitoring [RC] . DIRECTED Sodium Chloride 0.9% [Saline Flush] 10 ml FLUSH ASDIRECTED PRN Peripheral IV Insertion Adult [OM.PC] Stat 12/05/20 15:38 Peripheral IV Care [RC] . DIRECTED 12/05/20 16:48 EKG Documentation Completion [RC] ASDIRECTED EKG 12 Lead [EK] Stat 12/05/20 17:09 RT Aerosol Therapy [RC] ASDIRECTED 12/05/20 17:35 CORONAVIRUS COVID-19 LEONARD [MOLEC] Stat 12/05/20 17:38 CBC WITH AUTO DIFF [HEME] Stat 12/05/20 18:00 Sodium Chloride 0.9% @ 150 MLS/HR (1000ml Bag) Sodium Chloride 0.9% [Normal Saline] 1,000 ml IV ASDIRECTED - Assessment/Plan Last 24 Hours: My Active Orders 12/05/20 15:37 Cardiac Monitoring [RC] . DIRECTED Sodium Chloride 0.9% [Saline Flush] 10 ml FLUSH ASDIRECTED PRN Peripheral IV Insertion Adult [OM.PC] Stat 12/05/20 15:38 Peripheral IV Care [RC] . DIRECTED 12/05/20 16:48 EKG Documentation Completion [RC] ASDIRECTED EKG 12 Lead [EK] Stat 12/05/20 17:09 RT Aerosol Therapy [RC] ASDIRECTED 12/05/20 17:35 CORONAVIRUS COVID-19 LEONARD [MOLEC] Stat 12/05/20 17:38 CBC WITH AUTO DIFF [HEME] Stat 12/05/20 18:00 Sodium Chloride 0.9% @ 150 MLS/HR (1000ml Bag) Sodium Chloride 0.9% [Normal Saline] 1,000 ml IV ASDIRECTED
[2020-12-05] MEDS ORDERED: Albuterol 0.083% 2.5 MG/3 ML Neb Soln NEB ONE (17:09)
[2020-12-05] MEDS ORDERED: Calcium Gluconate 10% 1 GM/10 ML SDV IVPUSH ONE (17:09)
[2020-12-05] MEDS ORDERED: Sodium Polystyrene Sulfonate 15 GM/60 ML Susp 60 ML Bot PO ONE (17:09)
[2020-12-05] MEDS ORDERED: Insulin Regular, Human 100 Units/ML 3 ML Vial SUBCUT ONE (17:10)
[2020-12-05] MEDS ORDERED: 50% Dextrose in Water 50 ML Syringe IVPUSH ONE (17:10)
[2020-12-05] MEDS ORDERED: Sodium Chloride 0.9% 1,000 ML IV SCH (18:00)
== END 2020-12-05 18:41 ==
LOC: JD.ED 15:04
DX: K92.2 Gastrointestinal hemorrhage, unspecified (principal); E87.6 Hypokalemia; I13.0 Hypertensive heart and chronic kidney disease with heart failure and stage 1 through stage 4 chronic kidney disease, or unspecified chronic kidney disease; E11.22 Type 2 diabetes mellitus with diabetic chronic kidney disease; N18.6 End stage renal disease; I50.9 Heart failure, unspecified; D63.1 Anemia in chronic kidney disease; E78.00 Pure hypercholesterolemia, unspecified; I25.10 Atherosclerotic heart disease of native coronary artery without angina pectoris; I25.2 Old myocardial infarction; E03.9 Hypothyroidism, unspecified; Z99.2 Dependence on renal dialysis; Z79.01 Long term (current) use of anticoagulants; Z79.82 Long term (current) use of aspirin; Z20.822 Contact with and (suspected) exposure to COVID-19; R06.02 Shortness of breath
CPT/HCPCS: 36415; 80053; 85025; 86850; 86900; 86901; 93005; 94640; 96374; 96375; 99285; A9270; J0610; J1815; J7030; U0002

== ENCOUNTER 2020-12-22 21:52 | Emergency (ER) | payer MEDICARE, OTHER ==
--- NOTE | 2020-12-23 00:22 | EDM.PDOC ---
ED HPI GENERAL MEDICAL PROBLEM - General Chief Complaint: General Stated Complaint: [facility] Time Seen by Provider: 12/23/20 00:23 Source of Information: Reports: Patient, Family History Limitations: Reports: No Limitations - History of Present Illness INITIAL COMMENTS - FREE TEXT/NARRATIVE: Patient is a 80-year-old male who is complaining of having diarrhea this been ongoing for the last 2 weeks since he was discharged from the hospital in [place] for his admission for atrial fibrillation with AVR. Patient states he was on Eliquis but they took him off it due to GI bleeding. He is complaining of having some abdominal pain and does have a history of having his appendix out. He has not been vomiting but has had decreased appetite and has not been taking his medications for the last 3 days for this reason. Patient has been having 6-7 loose stools a day. He denies being on any recent antibiotics. He denies any fever chills any cough or respiratory symptoms. He has had no chest pain or pressure. He denies any bloody or tarry stools. Duration: Week(s): (Two) Rectal Pain Score (Numeric/FACES): 5 - Related Data Allergies Allergy/AdvReac Type Severity Reaction Status Date / Time No Known Allergies Allergy Verified 12/23/20 01:43 Home Meds: Home Meds Cholecalciferol (Vitamin D3) [Vitamin D3] 25 mcg PO DAILY 11/25/20 [History] Ferrous Sulfate 200 mg PO BID 11/25/20 [History] Levothyroxine Sodium [Levo-T] 100 mcg PO DAILY 11/25/20 [History] Metoprolol Succinate [Toprol Xl] 25 mg PO TUTH 11/25/20 [History] Midodrine 20 mg PO TIDAC 11/25/20 [History] Ondansetron [Zofran ODT] 4 mg PO QID PRN 11/25/20 [History] Pantoprazole [ProTONIX] 40 mg PO DAILY 11/25/20 [History] Vitc/E/Zinc/Copper/Lutein/Zeax [Icaps Areds2 Tablet] 1 tab PO BID 11/25/20 [History] Zinc Acetate [Galzin] 50 mg PO DAILY 11/25/20 [History] Amiodarone HCl 400 mg PO BID 12/05/20 [History] Apixaban [Eliquis] 5 mg PO BID 12/05/20 [History] Aspirin [Low Dose Aspirin EC] 81 mg PO DAILY 12/05/20 [History] Cyanocobalamin (Vitamin B-12) [B-12] 1,000 mcg PO DAILY 12/05/20 [History] Digoxin 0.0625 mg PO MOWEFR 12/05/20 [History] Nitroglycerin 0.4 mg SL ASDIRECTED PRN 12/05/20 [History] atorvaSTATin [Lipitor] 40 mg PO DAILY 12/05/20 [History] Past Medical History HEENT History: Reports: Impaired Vision, Macular Degeneration Other HEENT History: reading glasses Cardiovascular History: Reports: CAD, Heart Failure, High Cholesterol, Hypertension, MD, Pacemaker, Stents, Other (See Below) Other Cardiovascular History: Abdominal aortic aneurysm, pulmonary hypertension. MD in 1993 and 04/2019 Respiratory History: Reports: Sleep Apnea Other Respiratory History: wears CPAP Gastrointestinal History: Reports: GERD Genitourinary History: Reports: BPH, Other (See Below) Other Genitourinary History: stent to right kidney, microhematuria, cardiorenal syndrome with renal failure. He also states that he has had bladder cancer x3 that is no longer able to be fulgurated or cauterized and that it is blocking off at least one of his ureters which is contributing to his renal failure. He still is making some urine and is still on torsemide. [employer] History: Reports: None Musculoskeletal History: Reports: Arthritis, Neck Pain, Chronic Neurological History: Reports: CVA, TIA Other Neuro History: carotid endardectomy Psychiatric History: Reports: None Endocrine/Metabolic History: Reports: Diabetes, Type II, Hypothyroidism Hematologic History: Reports: Anemia, Blood Transfusion(s), Iron Deficiency, Other (See Below) Other Hematologic History: Microhematuria Immunologic History: Reports: None Oncologic (Cancer) History: Reports: Bladder, Non-Hodgkin's Lymphoma Other Oncologic History: Bladder neoplasm, bladder mass Dermatologic History: Reports: None - Infectious Disease History Infectious Disease History: Reports: Measles - Past Surgical History Head Surgeries/Procedures: Reports: None HEENT Surgical History: Reports: Cataract Surgery, Tonsillectomy, Other (See Below) Other HEENT Surgeries/Procedures: eye surgery Cardiovascular Surgical History: Reports: Carotid Endarterectomy, Pacer, Other (See Below) Other Cardiovascular Surgeries/Procedures: Angiogram Respiratory Surgical History: Reports: None GI Surgical History: Reports: Appendectomy, Colonoscopy, EGD, Other (See Below) Other GI Surgeries/Procedures: Sigmoidoscopy Male Surgical History: Reports: TURBT-Transurethral Resection of Bladder Tumor, Other (See Below) Other Male Surgeries/Procedures: cystoscopy with stent placement. Fisutla to left arm for dialysis Endocrine Surgical History: Reports: None Neurological Surgical History: Reports: None Musculoskeletal Surgical History: Reports: None Oncologic Surgical History: Reports: None Other Oncologic Surgeries/Procedures: bone marrow biopsy Dermatological Surgical History: Reports: None Social & Family History - Family History Family Medical History: No Pertinent Family History - Tobacco Use Tobacco Use Status *Q: Never Tobacco User Second Hand Smoke Exposure: No - Caffeine Use Caffeine Use: Reports: Coffee - Recreational Drug Use Recreational Drug Use: No - Living Situation & Occupation Living situation: Reports: , with Spouse (In their own home in [facility]) Occupation: Retired ED ROS GENERAL - Review of Systems Review Of Systems: Comprehensive ROS is negative, except as noted in HPI. ED EXAM, GENERAL - Physical Exam Exam: See Below Exam Limited By: No Limitations General Appearance: Alert, Mild Distress Head: Normocephalic Neck: Supple, Non-Tender Respiratory/Chest: No Respiratory Distress, Decreased Breath Sounds. No: Respiratory Distress Cardiovascular: No Edema, No JVD GI/Abdominal: Soft, No Organomegaly, Tender, Abnormal Bowel Sounds. No: Mass Back Exam: Normal Inspection. No: CVA Tenderness (L), CVA Tenderness (R) Extremities: Normal Inspection, No Pedal Edema Neurological: Alert, Normal Cognition Psychiatric: Normal Affect Skin Exam: Warm, Dry, Normal Color Lymphatic: No Adenopathy Course - Vital Signs Text/Narrative:: Patient's white blood cell count returned at 19.1 with hemoglobin of 10.5 and 85 neutrophils. His lactate was negative at 1.3. BUN 41 creatinine 5.1. Most importantly he has stools positive for C. difficile. CT scan is showing numerous findings including thickening of the wall of the sigmoid descending and ascending colon and cecum. There is also some stranding of the adjacent mesentery consistent with colitis. Patient has bilateral pleural effusions greater on the right with parenchymal opacification in the right lung base and cholelithiasis. He has a markedly bone nephrotic left kidney with stent most likely representing stent failure. He has a 4 cm abdominal aortic aneurysm. He also has severe narrowing at the origin of the celiac and superior mesenteric arteries. Family has requested that he be transferred to [facility]. He is scheduled for dialysis at noon today. I will give him his first dose of p.o. vancomycin. [facility] in [place] is called us back and said they are short staffed today and will not have a bed for her patient today. I then placed a call to [facility] and they also do not have a bed currently but recommend that we call back after 10:00 and they will very likely have a bed for the patient at that time. One call was stating they have at least 30 discharges today and only 9 patients in the emergency department waiting for placement. Patient is comfortable in the emergency department so we will hold him at this time. Last Recorded V/S: Last Vital Signs Temp 96.9 F 12/22/20 21:58 Pulse 73 12/22/20 21:58 Resp 15 12/22/20 21:58 BP 114/48 L 12/22/20 21:58 Pulse Ox 88 L 12/22/20 21:58 - Orders/Labs/Meds Orders: Active Orders 24 hr Category Date Time Status Abdomen Pelvis wo Cont [CT] Stat Exams 12/23/20 00:28 Taken C DIFFICILE TOXIN IMMUNOASSAY [MREF] Stat Lab 12/23/20 01:20 Received STOOL CULTURE/SHIGA TOXIN [MREF] Stat Lab 12/23/20 01:27 Ordered Sodium Chloride 0.9% [Normal Saline] 1,000 ml Med 12/23/20 00:30 Active IV ASDIRECTED Vancomycin [Vancomycin Cap] Med 12/23/20 03:45 Active 250 mg PO Q6H Medication Orders Sodium Chloride (Normal Saline) 1,000 mls @ 250 mls/hr IV ASDIRECTED COURT Last Admin: 12/23/20 01:29 Dose: 250 mls/hr Documented by: IKE Vancomycin HCl (Vancomycin 250 Mg Cap) 250 mg PO Q6H [facility] Last Admin: 12/23/20 04:20 Dose: 250 mg Documented by: IKE Labs: Laboratory Tests 12/23/20 12/23/20 12/23/20 Range/Units 01:05 01:05 01:05 WBC 19.13 H (4.23-9.07) K/mm3 RBC 3.16 L (4.63-6.08) M/mm3 Hgb 10.5 L D (13.7-17.5) gm/dl Hct 32.8 L (40.1-51.0) % MCV 103.8 H D (79.0-92.2) fl MCH 33.2 H (25.7-32.2) pg MCHC 32.0 L (32.2-35.5) g/dl RDW Std Deviation 62.9 H (35.1-43.9) fL Plt Count 178 (163-337) K/mm3 MPV 9.5 (9.4-12.3) fl Neutrophils % (Manual) 85 H (40-60) % Band Neutrophils % 0 (0-10) % Lymphocytes % (Manual) 7 L (20-40) % Atypical Lymphs % 0 % Monocytes % (Manual) 7 (2-10) % Eosinophils % (Manual) 1 (0.8-7.0) % Basophils % (Manual) 0 L (0.2-1.2) Platelet Estimate Adequate Hypochromasia 1+ slight Anisocytosis 2+ moderate RBC Morph Comment Abnormal Sodium 139 (136-145) mEq/L Potassium 4.1 D (3.5-5.1) mEq/L Chloride 100 (98-107) mEq/L Carbon Dioxide 29 (21-32) mEq/L Anion Gap 14.1 (5-15) BUN 41 H (7-18) mg/dL Creatinine 5.1 H (0.7-1.3) mg/dL Est Cr Clr Drug Dosing 10.38 mL/min Estimated GFR (MDRD) 11 (>60) mL/min BUN/Creatinine Ratio 8.0 L (14-18) Glucose 86 (70-99) mg/dL Lactic Acid 1.3 (0.4-2.0) mmol/L Calcium 8.4 L (8.5-10.1) mg/dL Total Bilirubin 0.4 (0.2-1.0) mg/dL AST 17 (15-37) U/L ALT 22 (16-63) U/L Alkaline Phosphatase 168 H (46-116) U/L Total Protein 5.7 L (6.4-8.2) g/dl Albumin 1.9 L (3.4-5.0) g/dl Globulin 3.8 gm/dL Albumin/Globulin Ratio 0.5 L (1-2) Lipase 12 L (73-393) U/L C.difficile [id number] C. difficile Tox (PCR) SARS-CoV-2 RNA (LEONARD) (NEGATIVE) 12/23/20 12/23/20 Range/Units 01:20 03:45 WBC (4.23-9.07) K/mm3 RBC (4.63-6.08) M/mm3 Hgb (13.7-17.5) gm/dl Hct (40.1-51.0) % MCV (79.0-92.2) fl MCH (25.7-32.2) pg MCHC (32.2-35.5) g/dl RDW Std Deviation (35.1-43.9) fL Plt Count (163-337) K/mm3 MPV (9.4-12.3) fl Neutrophils % (Manual) (40-60) % Band Neutrophils % (0-10) % Lymphocytes % (Manual) (20-40) % Atypical Lymphs % % Monocytes % (Manual) (2-10) % Eosinophils % (Manual) (0.8-7.0) % Basophils % (Manual) (0.2-1.2) Platelet Estimate Hypochromasia Anisocytosis RBC Morph Comment Sodium (136-145) mEq/L Potassium (3.5-5.1) mEq/L Chloride (98-107) mEq/L Carbon Dioxide (21-32) mEq/L Anion Gap (5-15) BUN (7-18) mg/dL Creatinine (0.7-1.3) mg/dL Est Cr Clr Drug Dosing mL/min Estimated GFR (MDRD) (>60) mL/min BUN/Creatinine Ratio (14-18) Glucose (70-99) mg/dL Lactic Acid (0.4-2.0) mmol/L Calcium (8.5-10.1) mg/dL Total Bilirubin (0.2-1.0) mg/dL AST (15-37) U/L ALT (16-63) U/L Alkaline Phosphatase (46-116) U/L Total Protein (6.4-8.2) g/dl Albumin (3.4-5.0) g/dl Globulin gm/dL Albumin/Globulin Ratio (1-2) Lipase (73-393) U/L C.difficile [id number] Presumptive negative C. difficile Tox (PCR) Positive H SARS-CoV-2 RNA (LEONARD) Negative (NEGATIVE) Meds: Medications Generic Name Dose Route Start Last Admin Trade Name Freq PRN Reason Stop Dose Admin Sodium Chloride 1,000 mls @ 250 mls/hr 12/23/20 00:30 12/23/20 01:29 Normal Saline IV 250 mls/hr ASDIRECTED COURT Administration Vancomycin HCl 250 mg 12/23/20 03:45 12/23/20 04:20 Vancomycin 250 Mg Cap PO [address] Administration Discontinued Medications Generic Name Dose Route Start Last Admin Trade Name Freq PRN Reason Stop Dose Admin Ondansetron HCl 4 mg 12/23/20 00:27 12/23/20 01:29 Ondansetron 4 Mg/2 Ml Sdv IVPUSH 12/23/20 00:28 4 mg ONETIME ONE Administration Departure - Departure Time of Disposition: 06:59 Disposition: Still A Patient 30 Condition: Fair Clinical Impression: Clostridium difficile colitis, End stage renal disease, Lung abnormality - Discharge Information Referrals: August Reyes MD [Primary Care Provider] - Forms: ED Department Discharge Sepsis Event Note (ED) - Evaluation Sepsis Screening Result: No Definite Risk - Focused Exam Vital Signs: Vital Signs Temp Pulse Resp BP Pulse Ox 12/22/20 21:58 96.9 F 73 15 114/48 L 88 L - My Orders Last 24 Hours: My Active Orders 12/23/20 00:28 Abdomen Pelvis wo Cont [CT] Stat 12/23/20 00:30 Sodium Chloride 0.9% [Normal Saline] 1,000 ml IV ASDIRECTED 12/23/20 01:20 C DIFFICILE TOXIN IMMUNOASSAY [MREF] Stat 12/23/20 01:27 STOOL CULTURE/SHIGA TOXIN [MREF] Stat 12/23/20 03:45 Vancomycin [Vancomycin Cap] 250 mg PO Q6H - Assessment/Plan Last 24 Hours: My Active Orders 12/23/20 00:28 Abdomen Pelvis wo Cont [CT] Stat 12/23/20 00:30 Sodium Chloride 0.9% [Normal Saline] 1,000 ml IV ASDIRECTED 12/23/20 01:20 C DIFFICILE TOXIN IMMUNOASSAY [MREF] Stat 12/23/20 01:27 STOOL CULTURE/SHIGA TOXIN [MREF] Stat 12/23/20 03:45 Vancomycin [Vancomycin Cap] 250 mg PO Q6H
[2020-12-23] MEDS ORDERED: Ondansetron 4 MG/2 ML SDV IVPUSH ONE (00:27)
[2020-12-23] MEDS ORDERED: Sodium Chloride 0.9% 1,000 ML IV SCH ×2 (00:30→10:00)
[2020-12-23] MEDS: Vancomycin 250 MG Cap PO SCH ×3 (04:20→16:40)
--- NOTE | 2020-12-23 07:56 | CT ---
CT abdomen and pelvis Technique: Multiple axial sections were obtained from above the dome of the diaphragm inferiorly through the pubic symphysis. Intravenous and oral contrast were not utilized. Reconstructed coronal and sagittal images were obtained. Comparison: No prior abdominal or pelvic CT study is available. Findings: Small right-sided pleural effusion is seen with minimal left-sided pleural effusion. Minimal atelectasis is noted within the right lung base. Thoracic aorta shows diffuse atherosclerotic change. Coronary artery calcification is noted with cardiomegaly. Possible stent within the coronary arteries is seen. Liver contains no focal abnormality. Gallbladder contains a single calcified gallstone measuring approximately 1.7 cm. Small amount of ascites is seen around the liver. Spleen size is normal. Small amount of ascites is also noted around the spleen. Adrenal glands show no nodule. Right kidney shows a small cyst posteriorly measuring approximately 1.0 cm. Right kidney also shows a cyst inferiorly measuring 4.4 cm. Left kidney shows hydronephrosis. Calcification is noted within the left kidney measuring 4.8 mm which is most likely due to nonobstructing stone. Vascular calcification is noted within the right kidney. Ureteral stent is noted on the left side. Proximal end lies within the renal pelvis and distal end lies within the bladder. There is dilatation of the left ureter and renal pelvis raising the question of whether the stent is completely working or if these findings are chronic. Sagittal views show atherosclerotic calcification at the origin of the celiac and superior mesenteric arteries which is suspicious for focal areas of stenosis. Pancreas shows no discrete abnormality. Abdominal aorta shows aneurysm within its mid aspect with an AP dimension of 4.1 cm. Diffuse atherosclerotic calcification is seen within the abdominal aorta and iliac vessels. No retroperitoneal adenopathy is seen. Appendix is not definitely visualized. Wall thickening is noted within the sigmoid colon raising the question of chronic versus acute colitis. Small amount of fluid is seen within the pelvis. No adenopathy is seen. Bone window settings were reviewed which show scattered degenerative change throughout the spine. Prominent degenerative change is noted within both hips. No acute osseous abnormality is appreciated. Impression: 1. Bilateral pleural effusions and mild right basilar atelectasis. Mild ascites is also noted within the abdomen and pelvis. 2. Dilated left renal pelvis and left ureter with left ureteral stent in place. Dilated urinary tract raises the question of chronic change versus nonfunction of the ureteral stent. 3. Narrowing at the origin of the celiac axis and superior mesenteric arteries due to calcified plaque. 4. Wall thickening within the sigmoid colon which can represent either chronic or acute colitis. 5. Other findings as noted above which are felt to be chronic. Diagnostic code #3 I agree with preliminary report from Ezequiel, finalized on 12/23/20, 4:09 AM CDT, code 1
== END 2020-12-23 16:45 ==
LOC: JD.ED 21:52 → SUPCPDRO 21:52 → JD.ED 12-23 16:45
DX: A04.72 Enterocolitis due to Clostridium difficile, not specified as recurrent (principal); I13.2 Hypertensive heart and chronic kidney disease with heart failure and with stage 5 chronic kidney disease, or end stage renal disease; E11.22 Type 2 diabetes mellitus with diabetic chronic kidney disease; N18.6 End stage renal disease; I50.9 Heart failure, unspecified; D63.1 Anemia in chronic kidney disease; J98.4 Other disorders of lung; I25.10 Atherosclerotic heart disease of native coronary artery without angina pectoris; E78.00 Pure hypercholesterolemia, unspecified; I25.2 Old myocardial infarction; K21.9 Gastro-esophageal reflux disease without esophagitis; M19.90 Unspecified osteoarthritis, unspecified site; E03.9 Hypothyroidism, unspecified; Z99.2 Dependence on renal dialysis; Z79.82 Long term (current) use of aspirin; Z79.01 Long term (current) use of anticoagulants; Z79.899 Other long term (current) drug therapy; Z20.822 Contact with and (suspected) exposure to COVID-19
CPT/HCPCS: 36415; 74176; 80053; 83605; 83690; 85007; 85027; 87324; 87493; 96374; 99285; A9270; J2405; J7030; U0002